=== PATIENT | female | born 1950 | race Caucasian/White ===

== ENCOUNTER 2025-01-20 17:41 | Emergency (ER) | payer OTHER, SELFPAY ==
[2025-01-20 17:49] VITALS: BP 159/85; PULSE 104; RESP 18; TEMP 36.5; O2SAT 96
--- NOTE | 2025-01-20 18:15 | ED.GENADUL_ITS ---
Discharge Plan Disposition Patient Disposition: Home Condition: Stable Discharge Details Clinical Impression: Change in mental status Primary Care Provider: None,None ED Provider: Leif Ramirez Discharge Instructions Additional Instructions: Your blood work and CAT scan did not show any emergent findings. I have placed you on our follow-up list to try and expedite follow-up with her primary care provider. If you feel more ill or have new symptoms such as high fevers or difficulty breathing return to emergency department for reevaluation. HPI General Date/Time Provider Initiated Documentation: 01/20/25 17:43 . Limitations to Documentation: no limitations . Information obtained by: patient . History of Present Illness 74 year old F presents to the emergency department with the chief complaint of altered mental status, described as moderate, Patient started experiencing this unknown and it has been constant. No relieving factors improve symptom(s), No exacerbating factors reported . Patient notes denies fever/chills and shortness of breath. Patient did receive the following treatments prior to arrival, none General Stated Complaint: Urinary MARIAMA: 3 Review of Systems All systems reviewed & are unremarkable except as noted in HPI and below Constitutional Constitutional: Denies chills, Denies fever(s) and Denies weakness Cardiovascular Cardiovascular: Denies chest pain and Denies dyspnea Respiratory Respiratory: Denies cough and Denies dyspnea Gastrointestinal Gastrointestinal: Denies abdominal pain, Denies nausea and Denies vomiting Neurologic Neurologic: Denies weakness Exam Const General: no acute distress Orientation: alert HENAZ Head: normal to inspection Ears: external ears normal General nose exam: external nose normal Mouth: moist mucous membranes Eyes General: appearance normal, both eyes and all related structures Neck Neck: normal visual inspection Resp Effort & Inspection: normal respiratory effort and able to speak in complete sentences Cardio Rate: regular rate GI Palpation: soft and nontender Skin General skin exam: no rashes or lesions noted Neuro General: patient alert and patient oriented x3 Extrem General: normal to inspection Psych Mental Status: mental status grossly normal Course Vital Signs Vital signs: Vital Signs Temperature 36.5 C 01/20/25 17:49 Pulse 104 H 01/20/25 17:49 Respiratory Rate 18 01/20/25 17:49 Blood Pressure 159/85 H 01/20/25 17:49 Pulse Oximetry 96 01/20/25 17:49 Temperature 36.5 C 01/20/25 17:49 Temperature Source Oral 01/20/25 17:49 Pulse 104 H 01/20/25 17:49 Respiratory Rate 18 01/20/25 17:49 Blood Pressure 159/85 H 01/20/25 17:49 Blood Pressure Position Sitting 01/20/25 17:49 Pulse Oximetry 96 01/20/25 17:49 Oxygen Delivery Method Room Air 01/20/25 17:49 Oxygen Flow Rate 0 01/20/25 17:49 Medical Decision Making 74-year-old female with a history of hypertension who comes in with her niece who she moved in with recently after moving from [place] with concerns for changes in mental status. The patient's niece states that she seems to be answering questions slower than what she remembers when she last saw her in person over a year ago. She went to urgent care a day or 2 ago and was diagnosed with a UTI and is currently on Bactrim. The patient is ambulating with a normal gait. She has oriented x 4 with no focal deficits but she does take a few seconds to answer questions normally. I suspect she probably has underlying dementia that is undiagnosed. Will check CBC, CMP and UA and CT head. Given the lack of focal findings and an NIH of 0 I doubt acute CVA. Patient stable and is asymptomatic. CT head and labs show no emergent findings. I suspect she probably has dementia that her family do not know about. They state that she has a PCP appointment in April, I will place on the follow-up list to try and get seen sooner than this. Return precautions given [facility] All Active Problems (Updated 01/20/25 @ 20:10 by Leif Ramirez MD) Change in mental status (Acute) Social History Smoking/Tobacco Use Status: Never Smoking risk assessment performed?: Yes Alcohol Intake: never Drug use: Never Substance use type: does not use Housing: apartment Do you feel safe at home: Yes Do you feel safe in your relationship?: Yes
[2025-01-20] MEDS: Normal Saline 1,000 ML 1000 ML IV (18:56)
--- NOTE | 2025-01-20 19:00 | DI.CT_ITS ---
Exam(s) CT HEAD WO EXAM: CT HEAD WO CLINICAL HISTORY: ams. TECHNIQUE: Imaging Protocol: Axial computed tomography images with coronal and sagittal reformatted images were created and reviewed COMPARISON: No exams were available for comparison FINDINGS: Ventricles and Extra axial spaces: Normal in size and morphology for the patient's age. Hemorrhage: None. Cerebral parenchyma: There is no evidence of an acute territorial infarct or mass effect. Midline shift: None. Brainstem/Cerebellum: Normal. Calvarium: Normal. Visualized Paranasal sinuses/Mastoids: Clear. Soft Tissues: Unremarkable. IMPRESSION: 1. No acute intracranial process. 2. The preliminary [facility] report was reviewed. RADIATION DOSE DELIVERED: 838.33mGy.cm Total DLP DATA REPOSITORY: All CT scans at this facility are submitted to the National Radiology Data Registry (NRDR) Dose Index Registry (DIR) with the [employer] (A[employer]). RADIATION OPTIMIZATION: All CT scans at this facility use at least one of these dose optimization techniques: automated exposure control; mA and/or kV adjustment per patient size (includes targeted exams where dose is matched to clinical indication); or iterative reconstruction.
[2025-01-20 19:03] LABS: Abs Immature Grans 0.01 10^3/uL (0.0-0.06); HCT 37.7 % (36.0-46.0); HGB 12.5 g/dL (11.2-15.7); Immature Grans % 0.2 %; MCH 31.3 pg (27.0-33.0); MCHC 33.2 % (32.0-36.0); MCV 95 fL (80-95); MPV 8.9 fL (8.0-11.0); Platelet Count 250 10^3/uL (130-400); RBC 3.99 10^6/uL (3.93-5.22); RDW 11.7 % (11.7-14.6); RDW-SD 40.8 fL; WBC 5.28 10^3/uL (4.4-10.8)
[2025-01-20 19:05] LABS: Glucose Negative (Negative)
[2025-01-20 19:12] LABS: RBC 0-2 HPF (0-2); WBC Negative HPF (0-5)
[2025-01-20 19:13] LABS: C & S Indicated? No
[2025-01-20 19:27] LABS: ALT 35 U/L (14-59); AST 24 U/L (15-37); Albumin 4.2 g/dL (3.4-5.0); Alkaline Phosphatase 59 U/L (46-116); Anion Gap 5.9 mmol/L (3-11); BUN 8 mg/dL (7-18); Bilirubin, Total 0.5 mg/dL (0.2-1.0); CO2 33.1 mmol/L (21.0-32.0); Calcium 9.6 mg/dL (8.5-10.1); Chloride 99 mmol/L (98-107); Estimated GFR 95.31 (mL/min/1.73m2); Glucose 111 mg/dL (74-106); Magnesium 2.3 mg/dL (1.8-2.4); Potassium 3.3 mmol/L (3.5-5.1); Sodium 138 mmol/L (136-145); Total Protein 7.2 g/dL (6.4-8.2)
--- NOTE | 2025-01-20 20:05 | DI.[facility]_ITS ---
PROCEDURE INFORMATION: Exam: CT Head Without Contrast Exam date and time: 01/20/2025 7:15 PM Age: 74 years old Clinical indication: Altered mental status/memory loss; Confusion or disorientation; AMS TECHNIQUE: Imaging protocol: Computed tomography of the head without contrast. Radiation optimization: All CT scans at this facility use at least one of these dose optimization techniques: automated exposure control; mA and/or kV adjustment per patient size (includes targeted exams where dose is matched to clinical indication); or iterative reconstruction. COMPARISON: No relevant prior studies available. FINDINGS: Brain: No acute intracranial hemorrhage or mass lesions. No midline shift. Normal hdz-white differentiation. Cerebral ventricles: No ventriculomegaly. Paranasal sinuses: Visualized sinuses are unremarkable. No fluid levels. Mastoid air cells: Visualized mastoid air cells are well aerated. Bones: Unremarkable. No acute fracture. Soft tissues: Unremarkable. IMPRESSION: No acute intracranial findings. Dictated and Authenticated by: Kinjal Todd MD. Orderin James Yadav MD
[2025-01-20 20:33] VITALS: BP 165/79; PULSE 76; RESP 18
== END 2025-01-20 20:34 | disposition home or self-care (01) ==
PROVIDERS: Emergency Provider Emergency Medicine
DX: R41.82 Altered mental status, unspecified (principal); Z87.440 Personal history of urinary (tract) infections
CPT/HCPCS: 36415; 80053; 96360; 96361; 99284; 70450; 81003; 81015; 83735; 85025; 99283

== ENCOUNTER 2025-01-24 17:19 | Outpatient (REF) | payer OTHER, SELFPAY ==
[2025-01-24 21:08] LABS: Folate > 20.0 ng/mL (8.6-20.0); TSH (W/Ref FT4) 0.46 uIU/mL (0.36-3.74); Vitamin B12 > 2000 pg/mL (193-986)
== END 2025-01-24 17:20 | disposition home or self-care (01) ==
LOC: NCHCN 17:19
PROVIDERS: Visit Provider Family Medicine
DX: R41.82 Altered mental status, unspecified (principal)
CPT/HCPCS: 82607; 82746; 84443

== ENCOUNTER 2025-01-25 18:40 | Inpatient (IN) | payer OTHER, SELFPAY ==
[2025-01-25] VITALS (26 sets, daily range): BP systolic 108–166; BP diastolic 57–119; PULSE 75–111; RESP 11–21; TEMP 36.6–36.9; O2SAT 85–100
--- NOTE | 2025-01-25 19:00 | RT.EKG_ITS ---
APPROVED REPORT Exam: Resting ECG Reason for Exam: tachy Patient Location: E HR:98 bpm ECG Measurements Heart Rate 98 AXIS CA 121 P 82 QRSd 76 QRS -48 QT 343 T 45 QTc 437 Conclusion Sinus rhythm, rate 98 No interval abnormalities No STEMI PAC Q wave V1-V2, no priors available for comparison
--- NOTE | 2025-01-25 19:05 | ED.GENADUL_ITS ---
Discharge Plan Disposition Patient Disposition: Admit to [facility] Condition: Stable Discharge Details Clinical Impression: Adult failure to thrive, Acute dehydration Admit Date/Time: 01/25/25 20:39 Admit Provider: Miguelito Villar Attending Provider: Miguelito Villar Primary Care Provider: Unknown,Unknown ED Provider: Eva Ryan [facility] General Mode of arrival: EMS . Date/Time Provider Initiated Documentation: 01/25/25 18:59 . Limitations to Documentation: no limitations . Information obtained by: patient, EMS and old records reviewed . HPI Narrative: This is a 74-year-old female patient with a past medical history significant for hypertension, and a recent visit to this emergency department for alteration in mental status and slow speech since moving from [place] to [place] to live closer to family. She is presenting today for ongoing alterations in mental status and not eating or drinking at home. EMS reports that the family was concerned as it has been 5 days and she has not eaten. They report that she continues to be off her most recent known baseline, which to them was 1 year ago. The patient will back to be with family and be closer to them, states that the move was really big and hard on her, and that she is feeling quite anxious. The patient was noted by EMS to answer no questions in the presence of her family, she answered some questions little more readily when she was in the ambulance. The patient is very slow to answer with blunted affect, denies pain, states that she just does not feel like eating. Denies suicidal ideations though she does hesitate quite a bit when asked if she is not eating because she wants to . She reports that she feels safe in her family members home, denies any physical abuse, states that nobody is withholding necessary things from her, but does state that she would prefer to be alone in her hospital room without family at this time. Related Data Home Medications ?Medication ?Instructions ?Recorded ?Confirmed losartan 25 mg tablet 25 mg PO DAILY 01/25/2501/07 Allergies Allergy/AdvReac Type Severity Reaction Status Date / Time lisinopril Allergy Severe Other (See Verified 01/25/25 18:58 Comment) General Stated Complaint: AMS/LOC MARIAMA: 3 Exam Narrative Exam Narrative: Gen: Awake and alert, appears quite thin HEENT: Non-icteric sclera, PERRL Neck: Supple Lungs: No apparent respiratory distress, normal respiratory effort. CV: Appears well perfused, heart with tachycardic rate but regular rhythm, strong distal pulses Abdomen: Non-distended, soft MSK: Moves 4 extremities without apparent limitation in ROM. No peripheral edema Skin: Visualized skin without rashes, cyanosis. Neuro: Normal Gait, no obvious focal deficits or facial asymmetry. Speaks in slow, soft sentences Psych: Blunted affect, significant (30 to 45-second) delay in answering many questions. Denies suicidal ideation Course Vital Signs Vital signs: Vital Signs Temperature 36.6 C 01/25/25 18:46 Pulse 111 H 01/25/25 18:46 Respiratory Rate 20 01/25/25 18:46 Blood Pressure 157/69 H 01/25/25 18:46 Pulse Oximetry 98 01/25/25 18:46 Temperature 36.6 C 01/25/25 18:51 Temperature Source Oral 01/25/25 18:51 Pulse 111 H 01/25/25 18:51 Respiratory Rate 20 01/25/25 18:51 Blood Pressure 157/69 H 01/25/25 18:51 Blood Pressure Position Sitting 01/25/25 18:51 Pulse Oximetry 98 01/25/25 18:51 Oxygen Delivery Method Room Air 01/25/25 18:51 Oxygen Flow Rate 0 01/25/25 18:51 Medical Decision Making This is a 74-year-old female patient presenting for evaluation of altered mental status and poor p.o. intake. Differential includes but is not limited to dehydration, metabolic and electrolyte derangement, anemia, kidney and liver injury. No chest pain to suggest ACS, though certainly that was considered in addition to arrhythmia. I considered psychiatric disturbance including suicidal ideation, depression, catatonia. Considered hypothyroidism, infection such as urinary tract infection, substance use and intoxication/withdrawal syndromes. The patient denies any sort of abuse or neglect at this time though this was considered given the demeanor shift when in the presence of her family. The patient had vitamin testing performed at her primary care's office yesterday, but unfortunately these results are not yet available. We will obtain an EKG, and labs to include CBC, CMP, magnesium, phosphorus, troponin, UDS, and urinalysis. The patient had a head CT on her visit just a few days ago which was without acute abnormality, and I do not see an indication based on the lack of reported trauma to repeat this study today. - EKG reviewed by myself, showing a sinus rhythm without evidence of ischemia, interval abnormalities, did have a single PAC. No priors available for comparison. I independently interpreted the laboratory studies, which show no significant leukocytosis, anemia, or thrombocytopenia. The chemistry panel is without evidence of electrolyte abnormality, kidney dysfunction, or liver injury. The patient does have a BUN to creatinine ratio greater than 22 1 suggestive of dehydration. Troponin was negative and without interval increase in 1 hour d elta recheck. TSH within normal limits, ethanol negative. I was able to obtain some collateral from the family members, including the patient's brother with whom she resides and her niece. They report that the patient was acting normally as recently as January 14, was conversant and interactive. For the last 2 weeks she has been increasingly withdrawn, no longer responds to texts or questions at home, and they report that she has been just standing in the same place for hours. They report that they have been working with outpatient providers and trying to get the patient referred to [facility], as they are concerned that she is not going to be successful at home. They report that she shuts down totally when she is offered food or drink by any of the family members. I discussed this patient's case with the hospitalist, as I do not feel that she is safe for discharge home based on my evaluation nor family report. She has failed outpatient management and at this time would benefit from inpatient admission for rehydration and likely [facility] psych evaluation/referral. I discussed the case with Dr. Mireles with the hospitalist team, and the decision was made to trial a small dose of intravenous benzodiazepine for catatonia. This was provided and the patient did become quite sleepy and rested. Family was made aware of the decision, and she will be transported from our department for admission. She remained hemodynamically appropriate while under my care. Eva Ryan MD [facility] All Active Problems (Updated 01/25/25 @ 21:22 by Miguelito Villar) DVT prophylaxis (Acute) Hypercalcemia (Acute) Acute dehydration (Acute) Adult failure to thrive (Acute) Change in mental status (Acute) Medical History (Updated 01/25/25 @ 21:22 by Miguelito Villar) Underweight Hypertension Social History Smoking/Tobacco Use Status: Never Smoking risk assessment performed?: Yes Alcohol Intake: never Drug use: Never Substance use type: does not use Housing: apartment Do you feel safe at home: Yes Do you feel safe in your relationship?: Yes
[2025-01-25 19:11] LABS: Abs Immature Grans 0.01 10^3/uL (0.0-0.06); HCT 40.9 % (36.0-46.0); HGB 13.7 g/dL (11.2-15.7); Immature Grans % 0.2 %; MCH 31.4 pg (27.0-33.0); MCHC 33.5 % (32.0-36.0); MCV 94 fL (80-95); MPV 8.9 fL (8.0-11.0); Platelet Count 264 10^3/uL (130-400); RBC 4.36 10^6/uL (3.93-5.22); RDW 11.7 % (11.7-14.6); RDW-SD 40.6 fL; WBC 5.38 10^3/uL (4.4-10.8)
[2025-01-25] MEDS: Lactated Ringers 1,000 ML 1000 ML IV (19:21)
[2025-01-25 19:46] LABS: ALT 30 U/L (14-59); AST 24 U/L (15-37); Albumin 4.3 g/dL (3.4-5.0); Alkaline Phosphatase 58 U/L (46-116); Anion Gap 13.7 mmol/L (3-11); BUN 25 mg/dL (7-18); Bilirubin, Total 0.9 mg/dL (0.2-1.0); CO2 26.3 mmol/L (21.0-32.0); Calcium 10.2 mg/dL (8.5-10.1); Chloride 97 mmol/L (98-107); Estimated GFR 91.83 (mL/min/1.73m2); Glucose 81 mg/dL (74-106); Magnesium 2.3 mg/dL (1.8-2.4); Potassium 4.1 mmol/L (3.5-5.1); Sodium 137 mmol/L (136-145); TSH (W/Ref FT4) 0.46 uIU/mL (0.36-3.74); Total Protein 7.5 g/dL (6.4-8.2)
[2025-01-25 19:47] LABS: Troponin I 20 ng/L (<or=51)
[2025-01-25] MEDS: Midazolam 2 MG/2 ML VIAL IVP (20:32)
[2025-01-25 20:46] LABS: Troponin I 22 ng/L (<or=51)
--- NOTE | 2025-01-25 20:53 | W.PM.HP.N ---
Date of service: 01/25/25 Time of Service: 20:53 Assessment and Plan Assessment and plan (1) Change in mental status: Status: Acute Assessment and plan: Subacute mental status alteration with clinical picture constistent with catatonia Has occured in several days to 2 week time frame. Basic labs non revealing. Recent TSH, B12 normal. Negative EtOH, UDS pending, but no drug use history With some memory changes get RPR with AM labs. With EtOH history get thiamine and give and IV dose tonight. CT reassuring from 01/20, exams have been non-focal, so stroke of space occupying lesion unlikely She denies formal mental health history other than AUD in remission, but describes h/o anxiety. She does meet criteria for MDD. Psych ccnsult placed. Consider MRI but we couldn't get until 01/28 CPK, low iron can be a/w catatonia, get these, She may end up needing geripsych placement (2) Acute dehydration: Status: Acute Assessment and plan: She got some fluids in the ED, repeat BUN/Cr in am, monitor urine output (3) Hypertension: Assessment and plan: Mildly elevated. Continue losartan (4) Underweight: Assessment and plan: She desribes significant weight loss. TSH normal. Treat possible depression. Consider nutrition. Get A1c. Malignancy work up should be reviewed. She may benefit from acid suppression given symptoms. (5) Hypercalcemia: Status: Acute Assessment and plan: hypercalcimia can have psychiatric effects, but hers is mild so I would not expect these. Get Vit D, ionized Ca, and PTH with repeat with morning labs. (6) DVT prophylaxis: Status: Acute Assessment and plan: with lack of activity, will cover with enoxaparin History of Present Illness History of Present Illness Chief Complaint: depressed mental status Narrative: 74 yo F with HTN, underweight, who recently moved to be near family from [place] is presenting for the second time this week with withdrawn behavior, depressed mental status, delayed speech, and not eating. She describes feeling anxious, thinking more slowly, and stomach not feeling good when she thinks about eating. On questioning she does endorse depressed mood and some feelings of hopelessness. When asked about suicidal ideation, she states not to that extent after waiting several seconds to respond. She is sleeping 8-9 hours a night. She described loosing about 20 lbs, though she isn't totally sure of the time course. She states she would like to put on weight but she doesn't feel like eating. She denies any recent alcohol or other substance use. She does say she is having more trouble remembering things than she used to. She denies hallucinations. No ESQUIVEL, vision changes, focal numbness or dizziness. No vomiting or diarrhea. No fevers or chills or night sweats. She was given a trial of midazolam in the ED. Per Dr. Baumann, she was more sedated afterwards, no not clear catatonia response. They patient herself says she feels more relaxed now and her speech is more fluent than described in ED note, though still delayed, especially when asked questions about symtoms of depression. Review of Systems All systems reviewed & are unremarkable except as noted in HPI and below PFSH All Active Problems (Updated 01/25/25 @ 22:44 by Miguelito Villar) DVT prophylaxis (Acute) Hypercalcemia (Acute) Acute dehydration (Acute) Adult failure to thrive (Acute) Change in mental status (Acute) Medical History (Updated 01/25/25 @ 22:44 by Miguelito Villar) Alcohol use disorder in remission Endometriosis Breast cancer Underweight Hypertension Surgical History (Updated 01/25/25 @ 22:43 by Miguelito Villar) S/P mastectomy, bilateral S/P bilateral oophorectomy Family History (Updated 01/25/25 @ 22:43 by Miguelito Villar) Brother Diabetes Father Heart disease Social History (Updated 01/25/25 @ 22:46 by Miguelito Villar) Smoking/Tobacco Use Status: Never Smoking risk assessment performed?: Yes Alcohol Intake: former Year quit: 2019 Drug use: Never Substance use type: does not use Housing: house Do you feel safe at home: Yes Do you feel safe in your relationship?: Yes Additional Social history: Moved from [place], [place] to [facility] 01/11/2025 to live with Brother and Niece. 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 Thin. No acute distress at rest. HEENT: Head atraumatic. Conjunctiva clear, no icterus. PEERL, EOMI. no rhinorrhea. MMM, OP benign. Neck is supple with no masses or lymphadenopathy, trachea midline LUNGS: CTAB with normal effort CV: RRR with no murmurs, gallops, or rubs. ABD: active bowel sounds, soft, nontender and nondistended. No masses. EXT: no cyanosis, clubbing. 1+ edema only in ankles below malleoli MSK: No joint redness or swelling NEURO: CN 2-12 intact. Normal strength, sensation to light touch, and DTRs of 4 extremities. Normal coordination. No tremor SKIN: No rashes or open wounds. PSYCH: Anxious mood, but flattened affect. Sitting strait up in bed, somewhat rigid posture. Speech is slightly slow,delayed after most questions, but more fluid when she starts to speak. Results Imaging EKG: report reviewed and image reviewed (NSR 96, some PACs, left axis, nl intervals, no ST-T changes) Imaging Studies: 01/20 CT head: no acute process Labs 01/25/25 19:05 01/25/25 19:05 Labs: Laboratory Results - last 24 hr 01/25/25 01/25/25 01/25/25 19:05 20:20 22:09 WBC 5.38 RBC 4.36 Hgb 13.7 Hct 40.9 MCV 94 MCH 31.4 MCHC 33.5 RDW 11.7 Plt Count 264 MPV 8.9 Immature Gran % 0.2 Neutrophils % 77.8 Lymphocytes % 13.4 Monocytes % 7.6 Eosinophils % 0.6 Basophils % 0.4 Nucleated RBC % 0.0 Absolute Neutrophils 4.19 Absolute Lymphocytes 0.72 L Absolute Monocytes 0.41 Absolute Eosinophils 0.03 Absolute Basophils 0.02 Sodium 137 Potassium 4.1 Chloride 97 L Carbon Dioxide 26.3 Anion Gap 13.7 H BUN 25 H Creatinine 0.7 Est GFR (CKD-EPI 2020) 91.83 Glucose 81 Calcium 10.2 H Phosphorus 3.5 Magnesium 2.3 Total Bilirubin 0.9 AST 24 ALT 30 Alkaline Phosphatase 58 Troponin I 20 22 Cancelled Total Protein 7.5 Albumin 4.3 TSH 0.46 Ethyl Alcohol < 3.0 Last Vital Signs Temp 36.6 C 01/25/25 18:51 Pulse 86 01/25/25 20:40 Resp 16 01/25/25 20:40 BP 166/87 H 01/25/25 20:30 Pulse Ox 99 01/25/25 20:40 Time Spent Time spent with Patient: 55-74 minutes Time was spent: preparing to see the patient(eg.review tests), obtaining and/or reviewing separately otained hiistory, ordering medications,tests, procedures, referring, communicating with other health insurance healthcare representative, indepentently interpreting results, counseling the patient and care coordination
--- NOTE | 2025-01-25 21:12 | W.PC.ACHO ---
Registration Status: REG ER Primary Language: Preferred Language: ED Information & Data Chief Complaint AMS/LOC 01/25/25 19:09 Triage Note per ems pt family states she 01/25/25 18:46 is not eating and drinking and slow to respond Medical / Surgical History (Last Updated 01/25/25 @ 21:05 by Miguelito Villar) Underweight Hypertension Most Recent Vital Signs Temperature 36.6 C 01/25/25 18:51 Temperature Source Oral 01/25/25 18:51 Pulse 86 01/25/25 20:40 Pulse 86 01/25/25 20:40 Respiratory Rate 16 01/25/25 20:40 Respiratory Effort Normal 01/25/25 19:10 Blood Pressure 166/87 H 01/25/25 20:30 Blood Pressure Mean 110 01/25/25 20:30 Blood Pressure Position Sitting 01/25/25 18:51 Pulse Oximetry 99 01/25/25 20:40 Oxygen Delivery Method Room Air 01/25/25 18:51 Oxygen Flow Rate 0 01/25/25 18:51 Allergies lisinopril Allergy (Severe, Verified 01/25/25 18:58) Other (See Comment) cough IV IV Catheter Type [Left Peripheral IV Antecubital] IV Catheter Gauge [Left 18 Antecubital] Diet Orders Category Date Time Status Regular/Normal [DIET] Nutrition 01/26/25 Breakfast Ordered Diagnostics 01/25/25 01/25/25 01/25/25 Range/Units Unknown 22:09 20:20 WBC (4.4-10.8) 10^3/uL RBC (3.93-5.22) 10^6/uL Hgb (11.2-15.7) g/dL Hct (36.0-46.0) % MCV (80-95) fL MCH (27.0-33.0) pg MCHC (32.0-36.0) % RDW (11.7-14.6) % Plt Count (130-400) 10^3/uL MPV (8.0-11.0) fL Immature Gran % % Neutrophils % % Lymphocytes % % Monocytes % % Eosinophils % % Basophils % % Nucleated RBC % (0.0-0.3) % Absolute Neutrophils (1.2-6.7) 10^3/uL Absolute Lymphocytes (1.2-3.4) 10^3/uL Absolute Monocytes (0.1-0.8) 10^3/uL Absolute Eosinophils (0.0-0.7) 10^3/uL Absolute Basophils (0.0-0.2) 10^3/uL Sodium (136-145) mmol/L Potassium (3.5-5.1) mmol/L Chloride (98-107) mmol/L Carbon Dioxide (21.0-32.0) mmol/L Anion Gap (3-11) mmol/L BUN (7-18) mg/dL Creatinine (0.55-1.02) mg/dL Est GFR (CKD-EPI 2020) (mL/min/1.73m2) Glucose (74-106) mg/dL Calcium (8.5-10.1) mg/dL Phosphorus (2.6-4.7) mg/dL Magnesium (1.8-2.4) mg/dL Total Bilirubin (0.2-1.0) mg/dL AST (15-37) U/L ALT (14-59) U/L Alkaline Phosphatase (46-116) U/L Troponin I Cancelled 22 (<or=51) ng/L Total Protein (6.4-8.2) g/dL Albumin (3.4-5.0) g/dL TSH (0.36-3.74) uIU/mL Ethyl Alcohol (<10) mg/dL Add-On Test Request Pending 01/25/25 Range/Units 19:05 WBC 5.38 (4.4-10.8) 10^3/uL RBC 4.36 (3.93-5.22) 10^6/uL Hgb 13.7 (11.2-15.7) g/dL Hct 40.9 (36.0-46.0) % MCV 94 (80-95) fL MCH 31.4 (27.0-33.0) pg MCHC 33.5 (32.0-36.0) % RDW 11.7 (11.7-14.6) % Plt Count 264 (130-400) 10^3/uL MPV 8.9 (8.0-11.0) fL Immature Gran % 0.2 % Neutrophils % 77.8 % Lymphocytes % 13.4 % Monocytes % 7.6 % Eosinophils % 0.6 % Basophils % 0.4 % Nucleated RBC % 0.0 (0.0-0.3) % Absolute Neutrophils 4.19 (1.2-6.7) 10^3/uL Absolute Lymphocytes 0.72 L (1.2-3.4) 10^3/uL Absolute Monocytes 0.41 (0.1-0.8) 10^3/uL Absolute Eosinophils 0.03 (0.0-0.7) 10^3/uL Absolute Basophils 0.02 (0.0-0.2) 10^3/uL Sodium 137 (136-145) mmol/L Potassium 4.1 (3.5-5.1) mmol/L Chloride 97 L (98-107) mmol/L Carbon Dioxide 26.3 (21.0-32.0) mmol/L Anion Gap 13.7 H (3-11) mmol/L BUN 25 H (7-18) mg/dL Creatinine 0.7 (0.55-1.02) mg/dL Est GFR (CKD-EPI 2020) 91.83 (mL/min/1.73m2) Glucose 81 (74-106) mg/dL Calcium 10.2 H (8.5-10.1) mg/dL Phosphorus 3.5 (2.6-4.7) mg/dL Magnesium 2.3 (1.8-2.4) mg/dL Total Bilirubin 0.9 (0.2-1.0) mg/dL AST 24 (15-37) U/L ALT 30 (14-59) U/L Alkaline Phosphatase 58 (46-116) U/L Troponin I 20 (<or=51) ng/L Total Protein 7.5 (6.4-8.2) g/dL Albumin 4.3 (3.4-5.0) g/dL TSH 0.46 (0.36-3.74) uIU/mL Ethyl Alcohol < 3.0 (<10) mg/dL Add-On Test Request Intake and Output - 24 Hour Total 01/25/25 18:32 thru 01/25/25 18:46 Weight 42.7 kg Falls Risk Assessment History of Falls No History 01/25/25 18:51 Contributing Factors No Factors 01/25/25 18:51 Ambulatory Aids Independent 01/25/25 18:51 Tubes/Lines None 01/25/25 18:51 Gait Evaluation No gait disturbance 01/25/25 18:51 Cognition No cognitive impairment 01/25/25 18:51 Fall Total Score 0 01/25/25 18:51 Level of Risk Standard/Low Risk 01/25/25 18:51 Problems (Last Updated 01/25/25 @ 21:05 by Miguelito Villar) Hypercalcemia (Acute) Acute dehydration (Acute) Change in mental status (Acute) v v v v v v v v v Sending and/or Receiving Nurses: Please use comment section below to note any information pertinent to the patient hand-off not included above. Information / Comments: report received from ED. On RA, slow speech. ind. Received Versed in the ED. Report received from: Marcella WOLFF RN
[2025-01-25 21:28] LABS: Creatine Kinase 98 U/L (26-192)
[2025-01-25] MEDS: Normal Saline Flush 10 ML SYR IVP (22:31)
[2025-01-25] MEDS: THIAMINE 500 MG in Normal Saline 100 ML 200 MG IVPB (23:32)
[2025-01-25] MEDS: Pantoprazole 40 MG TABCR PO (23:41)
[2025-01-26 00:19] LABS: Lab Add On Test DONE
[2025-01-26 00:48] LABS: Glucose Negative (Negative)
[2025-01-26 00:55] LABS: C & S Indicated? No
[2025-01-26 01:00] LABS: Cannabinoids THC Negative (Negative); METHADONE URINE SCREEN Negative (Negative)
[2025-01-26 07:15] LABS: Anion Gap 7.0 mmol/L (3-11); BUN 14 mg/dL (7-18); CO2 30.0 mmol/L (21.0-32.0); Calcium 9.2 mg/dL (8.5-10.1); Chloride 103 mmol/L (98-107); Estimated GFR 95.31 (mL/min/1.73m2); Glucose 88 mg/dL (74-106); Potassium 3.8 mmol/L (3.5-5.1); Sodium 140 mmol/L (136-145)
[2025-01-26 07:47] LABS: Iron 82 ug/dL (50-170); Total Iron Binding Capacity 266 ug/dL (250-450); Transferrin Sat 31 % (15-50)
[2025-01-26 08:10] LABS: Vitamin D 25 Total 49 ng/mL (30-100)
[2025-01-26] MEDS: Enoxaparin 40 MG/0.4 ML SYR SC (08:11)
[2025-01-26] MEDS: Losartan 25 MG TAB PO (08:11)
[2025-01-26] MEDS: Pantoprazole 40 MG TABCR PO (08:11)
[2025-01-26] MEDS: Normal Saline Flush 10 ML SYR IVP ×2 (08:12→20:09)
[2025-01-26 08:21] LABS: Hemoglobin A1C 5.1 % (<5.7)
[2025-01-26 09:06] VITALS: BP 131/59; PULSE 86; RESP 16; TEMP 36.5; O2SAT 97
--- NOTE | 2025-01-26 09:25 | INITIAL_ITS ---
Date of service: 01/26/25 Time of Service: 09:25 Care Management Initial Assmt Initial Assessment Reason for Hospitalization: acute dehydration, failure to thrive Functional Status/Living Situation Patient Presentation: Kerry presented to the ED yesterday evening for altered mental status and not eating or drinking at home. Kerry recently moved from [place] to [place] to be closer to family. Family stated that this was a big move Kerry and was hard on her, causing a lot of anxiety. She had presented to the ED on 01/20, also for change in mental status, had a reassuring CT, and was discharged home. Kerry was noted by ER staff to be very slow to answer questions and was described as catatonia. Psych eval was order. Kerry was given IVF and head CT on 01/20 was reassuring. Kerry did not really speak with CM today. She was sitting up in the bed, and was pleasant enough with her facial expressions and eye contact, but she did not answer questions, even when given the time to do so. She was noted to not having touched her lunch, and refused when CM asked to help her with it. CM reached out to Kerry's niece, Simran. Simran stated that Kerry just moved here from [place] on 01/15. She had lived in [place] for 50 years. She moved to [facility] to move in with her brother, Carlos. Simran lives in the same building. Simran stated that they keep in close touch, and she has noticed a decline for about 2 months. Tele-psych recommended that Kerry be a psych admit when consult performed today, as she was endorsing SI. [facility] was in to see Kerry, and Kerry is now a voluntary psych hold pending inpatient bed offer. Simran was made aware of this. Simran is hoping for [facility], this referral was suggested by her new PCP, Festus Bradford MD. Simran does not want referrals sent to [facility], as she has had a bad experince with them. MELODIE passed along this info to [facility]. Town of Residence: [facility] Resides with: Alone Significant Other/Family: Local (brother, Carlos and niece, Simran. ) Natural Supports: Carlos and Simran Employment Status: Retired Instrumental Activities of Daily Living (ADLs): Independent (had previously been independent.) Advance Directives Advance Directives: Do you have an Advance Directive: N , 18:44 AD On File at [facility]: N 01/20/25, 18:44 Date Asked 01/25/25 01/25/25, 19:10 AD Date Reviewed COLST On File at [facility] No 01/25/25, 19:10 COLST Date Scanned Code Status Resuscitation Status Full Code Insurance Coverage/Financial Issues Insurance: Medicare Part A & B Care Team Visit Care Team Role Provider Type Yumiko Lyon NP NURSE PRACTITIONER Unknown Unknown Primary Care Provider STAFF PHYSICIAN Eva Ryan MD Emergency Provider [facility] STAFF PHYSICIAN Miguelito Villar Admit Provider [facility] STAFF PHYSICIAN Attending Provider Discharge Potential Discharge Needs: PCP F/U Appt Anticipated Barriers to Discharge: None Identified Patient/Family Education Needs: Review discharge instructions, discuss Ask Me Three Plan: Kerry is now being held on a voluntary psych hold pending bed availability. She will be seen by [facility] daily while she is here. CM will continue to follow. Social Determinants of Health Screening Social Determinants of health last assessed in clinic: 01/26/25 Will the Patient Participate in the Screening?: Yes Do you worry about having a steady place to live?: no Problems where you live: no known problems In the past 12 months, have you had to go without electric, gas, oil or water in your home?: no 1. Within the past 12 months, we worried whether our food would run out before we got money to buy more.: Don't know/refused 2. Within the past 12 months, the food we bought just didn't last and we didn't have money to get more.: Don't know/refused Has lack of transportation kept you from medical appointments or from doing things needed for daily living?: no Has anyone in your life made you feel unsafe or unsupported?: no How hard is it for you to pay for the very basics like food, housing, medical care, and heating? Would you say it is:: Not hard at all Do you want help finding or keeping work or a job?: I do not need or want help If for any reason you need help with day-to-day activities such as bathing, preparing meals, shopping, managing finances, etc., do you get the help you need?: I don?t need any help How often do you feel lonely or isolated from those around you?: Never Do you speak a language other than Belarusian at home?: No Does the patient want assistance with any of the above?: No PFSH All Active Problems (Updated 01/26/25 @ 17:37 by Yumiko Lyon NP) DVT prophylaxis (Acute) Acute dehydration (Acute) Adult failure to thrive (Acute) Change in mental status (Acute) Medical History (Updated 01/26/25 @ 17:37 by Yumiko Lyon NP) Alcohol use disorder in remission Endometriosis Breast cancer Underweight Hypertension Surgical History (Updated 01/25/25 @ 22:43 by Miguelito Villar) S/P mastectomy, bilateral S/P bilateral oophorectomy Family History (Updated 01/25/25 @ 22:43 by Miguelito Villar) Brother Diabetes Father Heart disease Social History (Updated 01/25/25 @ 22:46 by Miguelito Villar) Smoking/Tobacco Use Status: Never Smoking risk assessment performed?: Yes Alcohol Intake: former Year quit: 2019 Drug use: Never Substance use type: does not use Housing: house Do you feel safe at home: Yes Do you feel safe in your relationship?: Yes Additional Social history: Moved from [place], [place] to [facility] 01/11/2025 to live with Brother and Niece. 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
--- NOTE | 2025-01-26 11:36 | PSYCO_ITS ---
Date of service: 01/26/25 Time of Service: 11:36 Summary Note PSYCHIATRY TELEPHONE NOTE Date/Time:?01/26/2025 11:35:04 AM Name:Shonda Bermudez :?1950 Location of the patient:?[facility] IP Consulting [facility] Clinician:?Sharif Dave Discussed plan with onsite cafeteria team leader:?Eva Lo RN 74-year-old female. patient with a past medical history significant for hypertension, and a recent visit to this emergency department for alteration in mental status and slow speech since moving from [place] to [place] to live closer to family. She is presenting today for ongoing alterations in mental status and not eating or drinking at home. EMS reports that the family was concerned as it has been 5 days and she has not eaten. They report that she continues to be off her most recent known baseline, which to them was 1 year ago. The patient will back to be with family and be closer to them, states that the move was really big and hard on her, and that she is feeling quite anxious. The patient was noted by EMS to answer no questions in the presence of her family, she answered some questions little more readily when she was in the amb ulance. The patient is very slow to answer with blunted affect, denies pain, states that she just does not feel like eating. Denies suicidal ideations though she does hesitate quite a bit when asked if she is not eating because she wants to . She reports that she feels safe in her family members home, denies any physical abuse, states that nobody is withholding necessary things from her, but does state that she would prefer to be alone in her hospital room without family at this time.. ?Spoke with Eva Lo RN. Hospital is on backup p[ower and their video machine is not connecting. Unclear when they will be up and running Plan: Case paused due to technical issues. Please notify [facility] when patient can be seen Sharif Dave , [facility]
--- NOTE | 2025-01-26 13:07 | W.PM.PROGNOT ---
Date of Service Date of service: 01/26/25 Time of Service: 13:07 Assessment and Plan Assessment and plan (1) Suicidal ideation: Status: Acute Assessment and plan: Telemetry psych consult completed and patient does endorse suicidality Mental health consultation with plan for voluntary inpatient psychiatric treatment Placed on suicidal precautions per protocol (2) Change in mental status: Status: Acute Assessment and plan: Medical screening exam unremarkable Patient was reportedly catatonic, this has resolved Mental health evaluation completed and patient endorses suicidality (3) Acute dehydration: Status: Acute Assessment and plan: BUN normalized after receiving IV fluids in the emergency department Still is not taking oral intake will give another liter of IV fluids, D5 and a half normal saline with 20 of potassium (4) Hypertension: Assessment and plan: Mildly elevated. Continue losartan (5) Underweight: Assessment and plan: Patient has reportedly not eaten in 7 days Continues to refuse to eat Inpatient psychiatric management pending bed acceptance (6) Hypercalcemia: Status: Resolved Assessment and plan: Normalized after receiving IV fluids Vit D, ionized Ca, and PTH complete (7) DVT prophylaxis: Status: Acute Assessment and plan: Continue enoxaparin Discussed with Dr. Brizuela Subjective Subjective Patient reports: no new complaints and afebrile; denies tolerating liquids well, tolerating a regular diet or shortness of breath Interval history since last seen: Patient remains hemodynamically stable. She continues to refuse to eat and drink. She is responding appropriately although her responses are slow. She does make eye contact denies any pain or complaints Did endorse suicidality during psychiatric evaluation Exam Narrative Exam Narrative: Thin female appearing younger than stated age no acute distress head is atraumatic eyes nonicteric noninjected oral mucosa is dry neck full range of motion no JVD cardiovascular regular rate and rhythm respirations even and unlabored abdomen soft nontender moves extremities no peripheral edema skin is pale warm and dry neurologic she is awake alert responding appropriately but slowed responses. Psychiatric blunted mood and affect does make eye contact slowed response Objective Last Vital Signs Temp 36.5 C 01/26/25 09:06 Pulse 86 01/26/25 09:06 Resp 16 01/26/25 09:06 BP 131/59 L 01/26/25 09:06 Pulse Ox 97 01/26/25 09:06 Laboratory Results - last 24 hr 01/25/25 01/25/25 01/25/25 19:05 20:20 22:09 WBC 5.38 RBC 4.36 Hgb 13.7 Hct 40.9 MCV 94 MCH 31.4 MCHC 33.5 RDW 11.7 Plt Count 264 MPV 8.9 Immature Gran % 0.2 Neutrophils % 77.8 Lymphocytes % 13.4 Monocytes % 7.6 Eosinophils % 0.6 Basophils % 0.4 Nucleated RBC % 0.0 Absolute Neutrophils 4.19 Absolute Lymphocytes 0.72 L Absolute Monocytes 0.41 Absolute Eosinophils 0.03 Absolute Basophils 0.02 Sodium 137 Potassium 4.1 Chloride 97 L Carbon Dioxide 26.3 Anion Gap 13.7 H BUN 25 H Creatinine 0.7 Est GFR (CKD-EPI 2020) 91.83 Glucose 81 Hemoglobin A1c Calcium 10.2 H Phosphorus 3.5 Magnesium 2.3 Iron TIBC Transferrin % Sat Total Bilirubin 0.9 AST 24 ALT 30 Alkaline Phosphatase 58 Creatine Kinase 98 Troponin I 20 22 Cancelled Total Protein 7.5 Albumin 4.3 25-OH Vitamin D Total TSH 0.46 Urine Color Urine Clarity Urine pH Ur Specific [place] Urine Protein Urine Ketones Urine Blood Urine Nitrite Urine Bilirubin Urine Urobilinogen Ur Leukocyte Esterase Urine RBC Urine WBC Ur Epithelial Cells Urine Crystals Urine Bacteria Urine Casts Urine Mucus Ur Culture Indicated? Urine Glucose Urine Opiates Screen Urine Methadone Screen Ur Barbiturates Screen Ur Tricyclics Screen Ur Amphetamines Screen U Benzodiazepines Scrn Urine Cocaine Screen Ur THC Screen Ethyl Alcohol < 3.0 Add-On Test Request 01/25/25 01/26/25 01/26/25 Unknown 00:30 06:35 WBC RBC Hgb Hct MCV MCH MCHC RDW Plt Count MPV Immature Gran % Neutrophils % Lymphocytes % Monocytes % Eosinophils % Basophils % Nucleated RBC % Absolute Neutrophils Absolute Lymphocytes Absolute Monocytes Absolute Eosinophils Absolute Basophils Sodium 140 Potassium 3.8 Chloride 103 Carbon Dioxide 30.0 Anion Gap 7.0 BUN 14 Creatinine 0.6 Est GFR (CKD-EPI 2020) 95.31 Glucose 88 Hemoglobin A1c 5.1 Calcium 9.2 Phosphorus Magnesium Iron 82 TIBC 266 Transferrin % Sat 31 Total Bilirubin AST ALT Alkaline Phosphatase Creatine Kinase Troponin I Total Protein Albumin 25-OH Vitamin D Total 49 TSH Urine Color Yellow Urine Clarity Clear Urine pH 6.0 Ur Specific [place] 1.025 Urine Protein 30 H Urine Ketones >=160 H Urine Blood Trace-lysed H Urine Nitrite Negative Urine Bilirubin Small H Urine Urobilinogen 0.2 Ur Leukocyte Esterase Trace H Urine RBC 3-5 H Urine WBC 3-5 Ur Epithelial Cells Rare Urine Crystals Negative Urine Bacteria Negative Urine Casts 0-2 Hyaline Urine Mucus Heavy Ur Culture Indicated? No Urine Glucose Negative Urine Opiates Screen Negative Urine Methadone Screen Negative Ur Barbiturates Screen Negative Ur Tricyclics Screen Negative Ur Amphetamines Screen Negative U Benzodiazepines Scrn Positive A Urine Cocaine Screen Negative Ur THC Screen Negative Ethyl Alcohol Add-On Test Request DONE Time Spent with Patient Time Spent with Patient: >50 minutes Time was spent: preparing to see the patient(eg.review tests), obtaining and/or reviewing separately otained hiistory, ordering medications,tests, procedures, referring, communicating with other health resident care aide, indepentently interpreting results and counseling the patient
--- NOTE | 2025-01-26 15:44 | PSYCO_ITS ---
Date of service: 01/26/25 Time of Service: 15:44 Summary Note PSYCHIATRY CONSULT NOTE: INITIAL EVALUATION Date/Time:?01/26/2025 3:43:09 PM Name:Shonda Bermudez :?1950 Location of the patient:?[facility] IP Consulting Array Clinician:?Sharif Dave Location of the clinician:?[place] Length of Consult:?40 minutes SUMMARY 74-year-old female, with history of anxiety disorder, depressive disorder, history of suicidal ideation, poor self-care, [id number], with no current excessive drug use, no history of violent behavior, no past psychiatric hospitalizations, admitted to medicine 01/25 for AMS referred to psychiatry for altered mental status, anxiety, depression. Patient presents medically to the hospital for significant dehydration. Family has reported that she has not been eating or drinking, does not talk much, increasingly withdrawn, no longer responds to texts or questions at home and sometimes will be found just standing in the same place for hours. She shuts down totally when offered food or drink by family members. When brought to the hospital she admits that she has been depressed, hopeless, and has lost 20 pounds. . When seen today, he says she has very high anxiety, is depressed, and has had suicidal thoughts but she does not think she is attempting to kill herself intentionally. She is flat, with extremely latent verbal responses to the point that the interview is limited. Patient appears to be gravely disabled by her current mental health, jones s never had any treatment, and is appropriate for psychiatric admission. The video feed failed and was not able to be reestablished during the discussion as to whether she would be voluntary or not. She appears to be so disabled that if she does not agree to voluntary admission, she should be screened for possible EE status. She is agreeable to starting medications. We discussed mirtazapine 15 mg nightly for her depression, anxiety, and appetite/sleep. She was agreeable. Patient is at elevated risk of danger to self. Patient presently meets criteria for inpatient psychiatric hospitalization. Working Diagnoses:? F33.2 Major depressive disorder, recurrent severe without psychotic features; F41.9 Anxiety disorder, unspecified ; F39386 Suicidal ideations Rule Out Diagnoses:? CPT Codes:?86653 - Psychiatric Diagnostic Evaluation with Medical Services PLAN Disposition:?patient medically admitted-anticipate psychiatric admission when medically stable ? Observation level ? Psychiatric 1:1 needed??Continue psych 1:1 OR Close observation per hospital protocol Work-up:? Pharmacological:? recommend starting Mirtazapine 15mg QHS ? Is patient psychotic? - No; ? Informed consent: Discussed risks and benefits of the above recommended psychiatric medications with patient, who demonstrated understanding and gave express informed consent to take the above medications as documented. Follow up needed while in the hospital??Q24h Other:? Parts of this note were dictated using voice recognition software and may contain small irregularities and grammatical errors which are unintentional. ? If questions arise about the psychiatric care of this patient, please call the [facility]?to request a follow-up consult. ?Please do not contact me individually through the EMR chat as I am not?regularly logged on to?this system. The psychiatrist for the follow-up visit may be a different psychiatrist Discussed plan with onsite merchandise flow team member:?Yes - Unable to reach Yumiko Lyon NP. Goes to . Discussed with Gaviota casillas RN HISTORY This evaluation was conducted remotely with the assistance of onsite staff via HIPAA-compliant video call. Patient consented to proceed with the telehealth visit. Requested by:?Yumiko Lyon NP, MD Sources of information:?Patient, medical record History of Present Illness:? 74-year-old female, living with family, single, retired, with history of anxiety disorder, depressive disorder, history of suicidal ideation, poor self-care, [id number], with no current excessive drug use, no history of violent behavior, no past psychiatric hospitalizations, admitted to medicine 01/25 for AMS referred to psychiatry for altered mental status, anxiety, depression. UDS not ordered, Alcohol undetectable. In the hospital, patient has been in behavioral control with no reported issues. patient with a past medical history significant for hypertension, and a recent visit to this emergency department for alteration in mental status and slow speech since moving from [place] to [place] to live closer to family. She is presenting today for ongoing alterations in mental status and not eating or drinking at home. EMS reports that the family was concerned as it has been 5 days and she has not eaten. They report that she continues to be off her most recent known baseline, which to them was 1 year ago. The patient will back to be with family and be closer to them, states that the move was really big and hard on her, and that she is feeli ng quite anxious. The patient was noted by EMS to answer no questions in the presence of her family, she answered some questions little more readily when she was in the ambulance. The patient is very slow to answer with blunted affect, denies pain, states that she just does not feel like eating. Denies suicidal ideations though she does hesitate quite a bit when asked if she is not eating because she wants to . She reports that she feels safe in her family members home, denies any physical abuse, states that nobody is withholding necessary things from her, but does state that she would prefer to be alone in her hospital room without family at this time.. On psychiatric evaluation, patient is reliable, organized, cooperative, alert, pleasant, unable to give clear history. She is very latent in her speech. I asked why she is here and she says she wasn't doing well. She has trouble telling me details about what this means. She says she was having fear and anxiety. I asked if the anxiety was about anything in particular. She says she moved here from [place] and arrived 01/15. she says it was stressful. Asked if she has a hx of anxiety before coming here and she doesnt answer directly, tells me about selling her house in [place] instead. Has to ask her again and she says she had not as much. She seems to be having some issues with word finding, which apparently isnt baseline either. She admits she cant eat because she is anxious. Ruminating about the circumstances of how her condo in [place] got sold but havbing trouble articulating what this is about. She also on admission endorsed some depression, hopelessness but no SI. She denied on admission that lack of intake was attempt to kill herself. When asked now she admits I did. I asked when that was and she says when I get really depressed. She says she has been suicidal since she moved to [place]. I asked if she is trying to end her life by not eating or drinking and she says not intentionally. Latency is so pronounced that information gathering about her history is very limited.. Collateral Contacted No-- patient meets criteria for inpatient hospitalization. Dr Baumann obtained collateral from the family members, including the patient's brother with whom she resides and her niece. They report that the patient was acting normally as recently as January 14, was conversant and interactive. For the last 2 weeks she has been increasingly withdrawn, no longer responds to texts or questions at home, and they report that she has been just standing in the same place for hours. They report that they have been working with outpatient providers and trying to get the patient referred to [facility], as they are concerned that she is not going to be successful at home. They report that she shuts down totally when she is offered food or drink by any of the family members.. PSYCHIATRIC REVIEW OF SYSTEMS (symptoms in past two weeks) Pertinent Positives:?depressed mood/hopelessness/poor appetite/anergia/anxiety Pertinent Negatives:?no anhedonia/no irritability/no aggressive behavior/no agitation/no command hallucinations/no panic attacks/no impulsivity PSYCHIATRIC HISTORY Past Psychiatric Diagnoses/Problems:?anxiety disorder, depressive disorder Psychiatric Treatment:?Hospitalizations:?no past psychiatric hospitalizations ???Other Past treatment:?none ???Current treatment:?no reported current psychiatric treatment Drug/Alcohol History ???Current excessive drug/alcohol use:?none ???Past excessive drug/alcohol use:?unknown ???Drug/alcohol use comment:?Treatment:?none ???Withdrawal symptoms:?none ???UDS results:?UDS not ordered ???BAL results:?undetectable ???Active withdrawal Protocol:? Stressors:?inadequate social support, exacerbation of mental illness, Recent move Trauma:?unknown Family Psychiatric History:?unknown HEALTH HISTORY Medical Problems:? deemed medically stable, hypertension Is patient linked with PCP??unknown Psychiatric and other clinically relevant medications:?none Allergies/Adverse Medication Reactions:?lisinopril Physical Findings:?no clinically significant changes in vital signs, no clinically significant abnormal lab values, QTc < 500 ms, QTc = 437 DEMOGRAPHICS/SOCIAL HISTORY Gender:?female Living Situation:?living with family Relationship Status:?single Education:?unknown Employment:?retired Social Support Network:?supportive social network of family or friends Legal History:?none Special Considerations:?none RISK EVALUATION Suicidality/self-injury:?Yes suicidal ideation Primary Suicide Screening (PSS-3) 1. In the past two weeks, have you felt down, depressed, or hopeless??YES 2. In the past two weeks, have you had thoughts of killing yourself??YES 3. In your lifetime, have you ever attempted to kill yourself??NO 3a. Within the past 6 months??NO ESS-6 Secondary Screen ( If #2 is yes or #3a is yes within the past 6 months, then complete secondary screen) 1. Positive on PSS-3 questions 2 & 3 ? active suicidal ideation with a past attempt??NO 2. Have you been thinking about how you might kill yourself??NO 3. Have you had some intention of acting on your thoughts??NO 4. Lifetime psychiatric hospitalization??NO 5. Has drinking or substance abuse ever been a problem for you??NO 6. Current irritability, agitation, or aggression??NO PSS-3/ESS-6 Secondary Screen Scoring:?Mild PSS-3/ESS-6 Scoring Interpretation Legend PSS-3 screen incomplete [Blank PSS-3 questions #2 OR #3a] PSS-3 screen unable to assess [Unable to Assess responses on PSS-3 questions #2 AND #3a] Mild [No current attempt AND No suicide plan or intent AND Score (0-2)] Moderate [No current attempt AND Active suicidal ideation with plan or intent (not both) OR Score (3-4)] Severe [Current attempt OR Suicide plan and intent OR Score (5-6)] HI/Violence/Property Destruction:?no history of violent/aggressive behavior Access to Firearms:?none Grave disability/Poor self-care:?yes [id number], poor PO intake, poor self-care Psychosis:?No Protective Factors:?future orientation High Utilization Criteria:?none Signs of Secondary Gain:?none MENTAL STATUS EXAM Appearance and Attire:? Normal, Poor eye contact, Thin Psychomotor agitation:? No abnormality Attitude and behavior:? Cooperative Speech:? Soft, VERY latent responses Mood:? Depressed, Anxious Affect:? Flat Thought Process:? Linear, Logical, Vague Thought content:? Suicidal ideation Perception:?unable to assess Intelligence:? Average Abstraction:? Appropriate Language:? No abnormality Orientation:? Grossly oriented Sensorium:? Normal Knowledge:? Appropriate for education and socioeconomic status Memory:? Intact Insight:? Severe impairment Judgment:? Severe impairment SUMMARY RISK ASSESSMENT Current Suicide Risk Elevated??PSS-3/ESS-6 Scoring: Mild? Current Violence Risk Elevated??No Issues with ability to care for self.?No Sharif Dave, , [facility]
--- NOTE | 2025-01-26 17:41 | CMSP_ITS ---
Date of service: 01/26/25 Time of Service: 17:41 Care Management Safety Plan Status Status: Voluntary Reason for Wait Reason for Wait: Inpatient Admission Safety Plan Safety Plan: VOLUNTARY FOR INPATIENT PSYCHIATRIC STABILIZATION.? Patient is appropriate in all interactions since arriving at [facility]; Pt has demonstrated appropriate coping and communication skills, has articulated his or her needs and concerns and is fully engaged during staff interactions. Safety plan has been established with patient, and care team, to adhere to patient goals, identify restrictions based on behavioral status, address nutrition, and determine allowed personal belongings, tools for hygiene and personal care. Determine level of activity including ambulation, level of superv ision, visitors, and determine privileges based on behaviors and level of engagement by pt. VOLUNTARY SAFETY PLAN: 1. Will remain on suicide precautions, in paper clothes 2. Will remain in med-surg room under direct supervision of one-on-one staff at all times provided by [employer]; MIKIE, INDUSTRIAL EDUCATION INSTRUCTOR telephone worker. 3. May have paper cups, plates, finger foods as well as a cardboard spoon with which to eat meals. 4. Follow [facility] Management of the Admitted Behavioral Health Patient policy. 5. Comfort bath system, shower permitted with escort at RN discretion. 6. Personal belongings-soft items permitted at RN discretion. 7. Visitors - Brother, Carlos, niece, Simran may visit. 8. Activities: soft cart items, hospital tablets (Netflix/[place]+/music) approved per RN discretion. 9.? Bathroom available in room without restriction. 10. Phone: limited to [facility] cordless phone at RN discretion. Due to VOLUNTARY status, if patient wishes to leave [facility], staff will contact [facility] Crisis Screener ([phone]) and Well Cleaner ([phone]) as soon as possible. In the event of elopement, notify [place] [employer] ([phone]). Patient is currently voluntarily at [facility] and seeking inpatient admission when a bed becomes available. [facility] Frontline Printed Circuit Board Drafter will continue seeking placement. Please contact the Well Cleaner ([phone]) and [facility] Printed Circuit Board Drafter ([phone]) for any needed changes in the Safety Plan. Safety plan has been provided to interdepartmental care team.
--- NOTE | 2025-01-26 17:41 | PDOC.CMSAFE ---
Date of service: 01/26/25 Time of Service: 17:41 Care Management Safety Plan Status Status: Voluntary Reason for Wait Reason for Wait: Inpatient Admission Safety Plan Safety Plan: VOLUNTARY FOR INPATIENT PSYCHIATRIC STABILIZATION.? Patient is appropriate in all interactions since arriving at [facility]; Pt has demonstrated appropriate coping and communication skills, has articulated his or her needs and concerns and is fully engaged during staff interactions. Safety plan has been established with patient, and care team, to adhere to patient goals, identify restrictions based on behavioral status, address nutrition, and determine allowed personal belongings, tools for hygiene and personal care. Determine level of activity including ambulation, level of supervision, visitors, and determine privileges based on behaviors and level of engagement by pt. VOLUNTARY SAFETY PLAN: 1. Will remain on suicide precautions, in paper clothes 2. Will remain in med-surg room under direct supervision of one-on-one staff at all times provided by [employer]; MIKIE, GANG PUNCH OPERATOR personal counselor. 3. May have paper cups, plates, finger foods as well as a cardboard spoon with which to eat meals. 4. Follow [facility] Management of the Admitted Behavioral Health Patient policy. 5. Comfort bath system, shower permitted with escort at RN discretion. 6. Personal belongings-soft items permitted at RN discretion. 7. Visitors - Brother, Carlos, niece, Simran may visit. 8. Activities: soft cart items, hospital tablets (Netflix/[place]+/music) approved per RN discretion. 9.? Bathroom available in room without restriction. 10. Phone: limited to [facility] cordless phone at RN discretion. Due to VOLUNTARY status, if patient wishes to leave [facility], staff will contact [facility] Crisis Screener ([phone]) and Knotter Hand ([phone]) as soon as possible. In the event of elopement, notify [place] [employer] ([phone]). Patient is currently voluntarily at [facility] and seeking inpatient admission when a bed becomes available. [facility] Frontline Housing Inspectors will continue seeking placement. Please contact the Knotter Hand ([phone]) and [facility] Housing Inspectors ([phone]) for any needed changes in the Safety Plan. Safety plan has been provided to interdepartmental care team.
[2025-01-26] MEDS: POTASSIUM CHLORIDE/D5-0.45NACL 1,000 ML 100 MEQ IV (20:23)
--- NOTE | 2025-01-26 22:20 | PDOC.MHCN ---
Date of service: 01/26/25 Time of Service: 16:45 PHQ-9 Over the last 2 weeks, how often have you been bothered by any of the following problems? 1. Little interest or pleasure in doing things: nearly every day 2. Feeling down, depressed, or hopeless: nearly every day 3. Trouble falling or staying asleep, or sleeping too much: nearly every day 4. Feeling tired or having little energy: nearly every day 5. Poor appetite or overeating: nearly every day 6. Feeling bad about yourself - or that you are a failure or have let yourself and your family down: nearly every day 7. Trouble concentrating on things, such as reading the newspaper or watching television: more than half the days 8. Moving or speaking so slowly that other people could have noticed? - Or the opposite - being so fidgety or restless that you have been moving around a lot more than usual: more than half the days 9. Thoughts that you would be better off or of hurting yourself in some way: more than half the days Total score: 24 If you checked off any problems, how difficult have these problems made it for you to do your work, take care of things at home, or get along with other people?: somewhat difficult Source: Developed by Drs. Chaka Kaye, Alesha Cole, Mauro Soliman and colleagues, with an educational andreas from [employer]. Mental Health Emergency Note Release NK release signed:: Yes Reason for Visit In the last 2 weeks has the pt presented for ES prior to today?: No Asssessment/Mental Status Appearance: Unremarkable Attitude: Passive and Guarded Behavior: Unremarkable Speech: Soft, Slow and Hesitant Affect: Flat and Cogruent with mood Mood: Sad and Depressed Thought process: Blocking Hallucinations: No evidence Delusions: No evidence Attention: Unremarkable Perception: Not impaired Orientation: Fully orientated Memory: Intact Insight: Poor Judgement: Poor Neurovegetative Symptoms Sleep: No change Appetitie: Decrease Interests: Decrease Energy: Decrease Libido: Not applicable Impression Kerry is a 74-year old female who recently moved from [place] to [place]. Per Kerry's family she has not been herself since arriving to [place]. Kerry has reportedly not been drinking or eating. Kerry appeared to this life insurance underwriter as severely depressed. After Kerry was asked a questions, she would remain quiet for a while then would respond in a soft tone. Typically with one word answers or a shake of her head. As the questions got more invasive, Kerry appeared to struggle with answering. This life insurance underwriter offered the assessment to Kerry to self report. By this method Kerry was able to complete to PHQ-9, which was scored at 24 out of 27. When Kerry attempted to answer the CSSRS questions, Kerry was observed to hover over the yes for all the questions multiple times. But when Kerry attempted to check off yes she was physically unable to. Due to the stress this was causing Kerry, this life insurance underwriter suggested discontinuing the questions. This life insurance underwriter then reported that Kerry didn't have to answer any additional question, but because of her inability to speak about her suicidal ideations this life insurance underwriter recommended inpatient hospitalized. Plan/Disposition Recommended Disposition: Hospitalization facilities contacted. Plan: Kerry agreed to a voluntary inpatient hospitalization. Kerry will need daily assessment till placement has been found. Reports/communication Outcome discussed with: ED/Personnel
[2025-01-26] MEDS: Acetaminophen 325 MG TAB 650 MG PO (22:59)
[2025-01-26] MEDS: diphenhydrAMINE 25 MG CAP PO (23:00)
[2025-01-27] MEDS: Losartan 25 MG TAB PO (07:59)
[2025-01-27] MEDS: Pantoprazole 40 MG TABCR PO (07:59)
[2025-01-27] MEDS: Enoxaparin 30 MG/0.3 ML SYR SC (07:59)
[2025-01-27] MEDS: Normal Saline Flush 10 ML SYR IVP (07:59)
[2025-01-27 08:44] VITALS: BP 138/84; PULSE 107; RESP 16; TEMP 36.6; O2SAT 98
--- NOTE | 2025-01-27 12:22 | CMSP_ITS ---
Date of service: 01/27/25 Time of Service: 12:22 Care Management Safety Plan Status Status: Voluntary Reason for Wait Reason for Wait: Inpatient Admission Safety Plan Safety Plan: VOLUNTARY FOR INPATIENT PSYCHIATRIC STABILIZATION.? Patient is appropriate in all interactions since arriving at [facility]; Pt has demonstrated appropriate coping and communication skills, has articulated his or her needs and concerns and is fully engaged during staff interactions. Safety plan has been established with patient, and care team, to adhere to patient goals, identify restrictions based on behavioral status, address nutrition, and determine allowed personal belongings, tools for hygiene and personal care. Determine level of activity including ambulation, level of supervision, visitors, and determine privileges based on behaviors and level of engagement by pt. VOLUNTARY SAFETY PLAN: 1. Will remain on suicide precautions, in paper clothes 2. Will remain in med-surg room under direct supervision of one-on-one staff at all times provided by [employer]; MIKIE, SURVEY ANALYST black oxide operator. 3. May have paper cups, plates, finger foods as well as a cardboard spoon with which to eat meals. 4. Follow [facility] Management of the Admitted Behavioral Health Patient policy. 5. Comfort bath system, shower permitted with escort at RN discretion. 6. Personal belongings-soft items permitted at RN discretion. 7. Visitors - Brother, Carlos, niece, Simran may visit. 8. Activities: soft cart items, hospital tablets (Netflix/[place]+/music) approved per RN discretion. 9.? Bathroom available in room without restriction. 10. Phone: limited to [facility] cordless phone at RN discretion. Due to VOLUNTARY status, if patient wishes to leave [facility], staff will contact [facility] Crisis Screener ([phone]) and Compressor Mechanic ([phone]) as soon as possible. In the event of elopement, notify [place] [employer] ([phone]). Patient is currently voluntarily at [facility] and seeking inpatient admission when a bed becomes available. [facility] Frontline Administrative Support Manager will continue seeking placement. Please contact the Compressor Mechanic ([phone]) and [facility] Administrative Support Manager ([phone]) for any needed changes in the Safety Plan. Safety plan has been provided to interdepartmental care team.
--- NOTE | 2025-01-27 12:22 | PDOC.CMSAFE ---
Date of service: 01/27/25 Time of Service: 12:22 Care Management Safety Plan Status Status: Voluntary Reason for Wait Reason for Wait: Inpatient Admission Safety Plan Safety Plan: VOLUNTARY FOR INPATIENT PSYCHIATRIC STABILIZATION.? Patient is appropriate in all interactions since arriving at [facility]; Pt has demonstrated appropriate coping and communication skills, has articulated his or her needs and concerns and is fully engaged during staff interactions. Safety plan has been established with patient, and care team, to adhere to patient goals, identify restrictions based on behavioral status, address nutrition, and determine allowed personal belongings, tools for hygiene and personal care. Determine level of activity including ambulation, level of supervision, visitors, and determine privileges based on behaviors and level of engagement by pt. VOLUNTARY SAFETY PLAN: 1. Will remain on suicide precautions, in paper clothes 2. Will remain in med-surg room under direct supervision of one-on-one staff at all times provided by [employer]; MIKIE, ATTORNEY AT LAW counter former. 3. May have paper cups, plates, finger foods as well as a cardboard spoon with which to eat meals. 4. Follow [facility] Management of the Admitted Behavioral Health Patient policy. 5. Comfort bath system, shower permitted with escort at RN discretion. 6. Personal belongings-soft items permitted at RN discretion. 7. Visitors - Brother, Carlos, niece, Simran may visit. 8. Activities: soft cart items, hospital tablets (Netflix/Mccall+/music) approved per RN discretion. 9.? Bathroom available in room without restriction. 10. Phone: limited to [facility] cordless phone at RN discretion. Due to VOLUNTARY status, if patient wishes to leave [facility], staff will contact [facility] Crisis Screener ([phone]) and Maori Liaison Adviser ([phone]) as soon as possible. In the event of elopement, notify [place] [employer] ([phone]). Patient is currently voluntarily at [facility] and seeking inpatient admission when a bed becomes available. [facility] Frontline Logistics Engineering Manager will continue seeking placement. Please contact the Maori Liaison Adviser ([phone]) and [facility] Logistics Engineering Manager ([phone]) for any needed changes in the Safety Plan. Safety plan has been provided to interdepartmental care team.
--- NOTE | 2025-01-27 12:33 | PGE_ITS ---
Date of Service Date of service: 01/27/25 Time of Service: 12:33 Assessment and Plan Assessment and plan (1) Suicidal ideation: Status: Acute Assessment and plan: awaiting voluntary inpatient psychiatric treatment suicidal precautions per protocol no behavioral disturbances (2) Change in mental status: Status: Resolved Assessment and plan: Medical screening exam unremarkable Patient was reportedly catatonic, this has resolved likely at baseline (3) Acute dehydration: Status: Resolved Assessment and plan: taking oral intake s/p IV hydration (4) Hypertension: Assessment and plan: Mildly elevated. Continue losartan (5) Underweight: Assessment and plan: Patient has reportedly not eaten in 7 days Continues to refuse to eat Inpatient psychiatric management pending bed acceptance (6) Hypercalcemia: Status: Resolved Assessment and plan: Normalized after receiving IV fluids Vit D, ionized Ca, and PTH complete (7) DVT prophylaxis: Status: Acute Assessment and plan: refuses enoxaparin has been out of bed and ambulating. Discussed with Dr. Brizuela Subjective Subjective Patient reports: no new complaints, tolerating liquids well and afebrile; denies tolerating a regular diet (not eating) or shortness of breath Interval history since last seen: remains under suicidal precautions, no behavioral disturbances, medically stable. still refusing to eat. Exam Narrative Exam Narrative: Thin female appearing younger than stated age no acute distress head is atraumatic eyes nonicteric noninjected oral mucosa is dry neck full range of motion no JVD cardiovascular regular rate and rhythm respirations even and unlabored abdomen soft nontender moves extremities no peripheral edema skin is pale warm and dry neurologic she is awake alert responding appropriately but sl owed responses. Psychiatric blunted mood and affect does make eye contact slowed response Objective Last Vital Signs Temp 36.6 C 01/27/25 08:44 Pulse 107 H 01/27/25 08:44 Resp 16 01/27/25 08:44 BP 138/84 01/27/25 08:44 Pulse Ox 98 01/27/25 08:44 Time Spent with Patient Time Spent with Patient: 35-49 minutes Time was spent: preparing to see the patient(eg.review tests), obtaining and/or reviewing separately otained hiistory, indepentently interpreting results and counseling the patient
--- NOTE | 2025-01-27 16:38 | CMPROGNOTE_ITS ---
Date of service: 01/27/25 Time of Service: 16:38 Care Management Progress Note Progress Note Text Progress Note Text: Kerry was up in the chair when CM met with her today. She was a bit more talkative than yesterday, but still very quiet. She appears cognizant of her surroundings and situation. She was noted to be eating a little bit of lunch. Her niece was in to visit with her earlier, as was [facility]. [facility]i did show some interest in Kerry, but Simran, her niece, declined that offer due to a bad experience there and they are hopeful for [facility] or [facility]. Discharge Potential Discharge Needs: Other (inpatient psychiatric bed ) Anticipated Barriers to Discharge: Bed availability Transportation: Other (to be determined at disposition) Plan: Kerry will remain as inpatient until a psychiatric bed is available. Her transport will be determined at discharge. CM will continue to follow. MH Services (Omit if N/A) Current MH Services: None Referred to Internal [facility] (ED embedded) adult protective caseworker?: Yes (med provider and therapist) Social Determinants of Health Screening Social Determinants of health last assessed in clinic: 01/27/25 Will the Patient Participate in the Screening?: Yes Do you worry about having a steady place to live?: no Problems where you live: no known problems In the past 12 months, have you had to go without electric, gas, oil or water in your home?: no 1. Within the past 12 months, we worried whether our food would run out before we got money to buy more.: Don't know/refused 2. Within the past 12 months, the food we bought just didn't last and we didn't have money to get more.: Don't know/refused Has lack of transportation kept you from medical appointments or from doing things needed for daily living?: no Has anyone in your life made you feel unsafe or unsupported?: no How hard is it for you to pay for the very basics like food, housing, medical care, and heating? Would you say it is:: Not hard at all Do you want help finding or keeping work or a job?: I do not need or want help If for any reason you need help with day-to-day activities such as bathing, preparing meals, shopping, managing finances, etc., do you get the help you need?: I don?t need any help How often do you feel lonely or isolated from those around you?: Never Do you speak a language other than Hungarian at home?: No Does the patient want assistance with any of the above?: No
[2025-01-27] MEDS: POTASSIUM CHLORIDE/0.45% NACL 1,000 ML 100 MEQ IV (18:40)
[2025-01-27 20:44] VITALS: BP 141/88; PULSE 99; RESP 18; TEMP 36.6; O2SAT 98
[2025-01-27] MEDS: Mirtazapine 15 MG TAB PO (20:45)
[2025-01-28] MEDS: POTASSIUM CHLORIDE/0.45% NACL 1,000 ML 100 MEQ IV ×2 (04:06→14:56)
[2025-01-28] MEDS: Pantoprazole 40 MG TABCR PO (07:52)
[2025-01-28] MEDS: Losartan 25 MG TAB PO (07:53)
[2025-01-28 10:37] LABS: Syphilis Serology (RPR) Negative (Negative)
--- NOTE | 2025-01-28 11:17 | PDOC.CMPRO ---
Date of service: 01/28/25 Time of Service: 11:17 Care Management Progress Note Progress Note Text Progress Note Text: CM spoke with [facility] surrounding Kerry's plan of care. Per Rose [facility], Kerry's mentation has worsened since she saw her on 01/19/25 with an increase in delayed response time. [facility] states she is disorientated to place and time. Per report, referrals were sent; Kimberly will follow up on these today. CM faxed clinical information to [facility]. Per report, RN states [facility] has built a reppote with Kerry. Kerry was agreeable to conversation but did require some time to deliver her responses; responses were appropriate. Kerry shared that she previously lived in [place] and enjoyed her time there. She mentioned having a nephew who resides there with his and children. Krery stated that she enjoys reading and baking bread, although she does not typically engage in other types of baking. She expressed hope that she might be able to go for a walk later today. At the time of conversation, eKrry had lunch in front of her but reported not feeling very hungry, though she noted that she does enjoy sandwiches. Kerry states that she would want Simran Cardona and Carlos Bermudez be her HCA. Kerry called Simran on her cell phone while CM in room. Simran states Kerry has AD and is agreeable to bringing this paperwork in; Scanning in. Kerry was accepted to [facility] for tomorrow and she is agreeable to this plan. Repeate telepsych consult ordered. CM will continue to follow. Discharge Potential Discharge Needs: Other (inpatient psychiatric bed) Anticipated Barriers to Discharge: Bed availability Patient/Family Education Needs: Review discharge instructions, discuss Ask Me Three Transportation: Other (to be determined at disposition) Plan: Kerry will remain as inpatient until a psychiatric bed is available. Her transport will be determined at discharge. CM will continue to follow. Status Status: Interim Social Determinants of Health Screening Social Determinants of health last assessed in clinic: 01/28/25 Will the Patient Participate in the Screening?: Yes Do you worry about having a steady place to live?: no Problems where you live: no known problems In the past 12 months, have you had to go without electric, gas, oil or water in your home?: no 1. Within the past 12 months, we worried whether our food would run out before we got money to buy more.: Never true 2. Within the past 12 months, the food we bought just didn't last and we didn't have money to get more.: Never true Has lack of transportation kept you from medical appointments or from doing things needed for daily living?: no Has anyone in your life made you feel unsafe or unsupported?: no How hard is it for you to pay for the very basics like food, housing, medical care, and heating? Would you say it is:: Not hard at all Do you want help finding or keeping work or a job?: I do not need or want help If for any reason you need help with day-to-day activities such as bathing, preparing meals, shopping, managing finances, etc., do you get the help you need?: I don?t need any help How often do you feel lonely or isolated from those around you?: Never Do you speak a language other than Tanzanian at home?: No Does the patient want assistance with any of the above?: No
--- NOTE | 2025-01-28 12:39 | W.PM.PROGNOT ---
Date of Service Date of service: 01/28/25 Time of Service: 12:39 Assessment and Plan Assessment and plan (1) Suicidal ideation: Status: Acute Assessment and plan: Suicidal ideation: Awaiting voluntary inpatient psychiatric admission Precautions: Suicidal precautions per hospital protocol Behavior: No acute behavioral disturbances noted (2) Change in mental status: Status: Acute Assessment and plan: 74F with severe depression, anxiety, and suicidal ideation; no improvement with mirtazapine, remains gravely disabled and with poor intake. Request consult for further treatment recommendations and guidance on management. Requested tele psych consult for today. (3) Acute dehydration: Status: Resolved Assessment and plan: Continue oral hydration - encourage (4) Hypercalcemia: Status: Resolved Assessment and plan: Normalized after receiving IV fluids Vit D, ionized Ca, and PTH complete (5) DVT prophylaxis: Status: Acute Assessment and plan: refuses enoxaparin has been out of bed and ambulating. Discussed with Dr. Brizuela Subjective Subjective Patient reports: no new complaints Interval history since last seen: Unable to assess subjective due to patient?s marked latency, flat affect, and minimal verbal responses Exam Narrative Exam Narrative: General: Thin female, appears younger than stated age, no acute distress Head: Atraumatic Eyes: Nonicteric, noninjected Oral: Mucosa dry Neck: No JVD Cardiovascular: Regular rate and rhythm Respiratory: Even, unlabored respirations Abdomen: Soft, nontender Extremities: Moves all extremities, no peripheral edema Skin: Pale, warm, dry Neurologic: Awake, alert, not responding to questions or making eye contact at time of assessment. Psychiatric: Nonverbal, not responding to questions, no eye contact, affect blunted. Objective Last Vital Signs Temp 36.6 C 01/27/25 20:44 Pulse 99 H 01/27/25 20:44 Resp 18 01/27/25 20:44 BP 141/88 H 01/27/25 20:44 Pulse Ox 98 01/27/25 20:44 Laboratory Results - last 24 hr 01/26/25 06:35 Ionized Calcium 1.18 PTH Intact 23 Time Spent with Patient Time Spent with Patient: 35-49 minutes Time was spent: preparing to see the patient(eg.review tests), ordering medications,tests, procedures, referring, communicating with other health pet care technician, indepentently interpreting results, counseling the patient and care coordination
--- NOTE | 2025-01-28 16:10 | PDOC.MHCN ---
Date of service: 01/28/25 Time of Service: 10:15 Suicide Severity Rate CSSRS Have you wished you were or wished you could go to sleep and not wake up?: No Have you actually had any thoughts of killing yourself?: No CSSRS3 Have you ever done anything, started to do anything or prepared to do anything to end your life?: No Screening Score Total Score: 0 Screening: Negative Mental Health Emergency Note Release [facility] release signed:: Yes Reason for Visit Altered status In the last 2 weeks has the pt presented for ES prior to today?: Unknown Client Information Client is: New Well Housed: Yes Non Suicidal Self Injury Current: No History: No Risk: Does risk to harm exist?: yes. Duty to warn indicated: No Asssessment/Mental Status Appearance: Disheveled Attitude: Other Behavior: Other Speech: Soft, Hesitant and Other Affect: Flat Mood: Sad and Other Thought process: Other Hallucinations: No evidence Delusions: No evidence Attention: Other Perception: Other Orientation: Disoriented in Time and Situation Memory: Impaired in: Recent Neurovegetative Symptoms Sleep: Decrease Appetitie: Decrease Interests: Decrease Energy: Decrease Libido: No change Impression Client presents with extreme latency in responses, unable to participate in actual assessments. Denies suicidal or homicidal ideation, reports safe at home, minimal engagement. Appears to be attempting to commumicate. Plan/Disposition Recommended Disposition: Hospitalization facilities contacted. Plan: Client has been referred to inpatient mental health treatment for evaluation. Reports/communication Outcome discussed with: Other
--- NOTE | 2025-01-28 17:04 | W.PM.PROGNOT ---
Date of Service Date of service: 01/28/25 Time of Service: 17:04 Subjective Subjective Patient reports: no new complaints Interval history since last seen: She continues to be withdrawn, poor eye contact, does not answer questions, and has not been eating or drinking adequately, only had less than an ounce of yogurt today. Objective Last Vital Signs Temp 36.6 C 01/27/25 20:44 Pulse 99 H 01/27/25 20:44 Resp 18 01/27/25 20:44 BP 141/88 H 01/27/25 20:44 Pulse Ox 98 01/27/25 20:44 Laboratory Results - last 24 hr 01/26/25 06:35 Ionized Calcium 1.18 PTH Intact 23 Syphilis Serology Negative
[2025-01-28 18:42] VITALS: BP 145/68; PULSE 120; RESP 15; TEMP 36.5; O2SAT 98
[2025-01-28] MEDS: Mirtazapine 15 MG TAB PO (20:15)
--- NOTE | 2025-01-28 20:46 | PSYCHFUP_ITS ---
Date of service: 01/28/25 Time of Service: 20:20 Summary Note PSYCHIATRY CONSULT NOTE: FOLLOW-UP EVALUATION Date/Time:?01/28/2025 8:40:06 PM Name:Shonda Bermudez :?1950 Location of the patient:?[facility] IP Consulting Array Clinician:?Tarah Miles Location of the clinician:?[place], [place] SUMMARY Patient is a 74-year-old female, who resides in single family home in [place] with family. She has a past psychiatric history significant for anxiety, depression, alcohol use disorder in full sustained remission 2018, no history of complicated withdrawal seizures, no prior inpatient psychiatric hospitalizations, no prior suicide attempts, and a history of chemical dependency treatment in 2019. She was admitted to medicine 01/25 for altered mental status referred to psychiatry for altered mental status, anxiety, depression and recommended inpatient psychiatric hospitalization. Psychiatry was consulted on 01/28/25 for reevaluation. Patient continues to be depressed and anxious including symptoms of sadness, hopelessness, some symptoms of anxiety, decline in activities of daily, and symptoms of anhedonia. She was reportedly considering on whether she wished to continue with the mirtazapine but did not articulate specific concerns about the mirtazapine. Patient continues to require inpatient psychiatric hospitalization. Patient has significant latency in her speech, has very still kinetics in the chair, poor oral intake. RISK ASSESSMENT Current Suicide Risk Elevated???moderate Current Violence Risk Elevated???No Issues with ability to care for self???undetermined Does patient require psychiatric hospitalization???Yes Working Diagnoses:? F33.2 Major depressive disorder, recurrent severe without psychotic features Rule Out Diagnoses:? CPT Codes:?28732 (OP/ED) / 90857 (IP) ? Moderate Complexity Follow-up PLAN Disposition:?Voluntary admission when medically stable. Patient understands recommendation for psychiatric admission and consents. Re-consult psychiatry/screening if patient requests discharge. ? Observation level ? Psychiatric 1:1 needed??Continue psych 1:1 OR Close observation per hospital protocol Work-up:? Pharmacological:? * Continue mirtazapine 15 mg at bedtime, patient unsure if she wishes to continue the medication, * Would recommend a trial of lorazepam 0.5 mg every six hours scheduled for possible symptoms of catatonia. * Is patient psychotic? - undetermined; * Informed consent: Discussed risks and benefits of the above recommended psychiatric medications with patient, who demonstrated understanding and gave express informed consent to take the above medications as documented. Follow up needed while in the hospital??24-48 hours follow up Other:? * If questions arise about the psychiatric care of this patient, please call the [facility]?to request a follow-up consult. ?Please do not contact me individually through the EMR chat as I am not?regularly logged on to?this system. The psychiatrist for the follow-up visit may be a different psychiatrist Discussed plan with onsite steam hammer operator:?Yes - This facility has a sign-out process that does not involve doc-to-doc communication, reviewed evaluation and recs with Deepti LUZ HISTORY This evaluation was conducted remotely with the assistance of onsite staff via HIPAA-compliant video call. Patient consented to proceed with the telehealth visit. Requested by:?Hospital medicine colleaguesMD Medical Record Reviewed/Appreciated:? Patient status since last psychiatric visit?:?in behavioral control with no reported issues Interval History:? Patient is a 74-year-old female, who resides in single family home in [place] with family. She has a past psychiatric history significant for anxiety, depression, alcohol use disorder in full sustained remission 2018, no history of complicated withdrawal seizures, no prior inpatient psychiatric ho spitalizations, no prior suicide attempts, and a history of chemical dependency treatment in 2019. She was admitted to medicine 01/25 for altered mental status referred to psychiatry for altered mental status, anxiety, depression and recommended inpatient psychiatric hospitalization. Psychiatry was consulted on 01/28/25 for reevaluation. On psychiatric interview, patient is alert and oriented to self, year, month, day of the week. Patient has significant latency in her responses to this provider. Patient reports that she continues to be anxious intermittently throughout the day. She reports that she is struggling with her mood including feelings of hopelessness, sadness, anhedonia, and increasing struggle with activities of daily living, Collateral Contacted No-- patient meets criteria for inpatient hospitalization. Family reported to nursing at baseline patient has latency in her speech but it has been more profound in the last couple of weeks. Current psychiatric and other clinically relevant medications:?mirtazapine 15 mg at bedtime MENTAL STATUS EXAM Appearance and Attire:?appropriate level of hygiene and self grooming, dressed in blue scrubs Psychomotor agitation:?still kinetics Attitude and behavior:?limited historian Speech:? Slow, Soft, Increased latency Mood:? Depressed, Anxious Affect:?blunted and restricted Thought Process:?no loosening of associations, concrete in thought processes Thought content:?no apparent delusions or paranoia Perception:?did not appear to be responding to internal stimuli Intelligence:? Average Abstraction:? [place] Language:? No abnormality Orientation:? Grossly oriented Sensorium:? Distractible Knowledge:? Appropriate for education and socioeconomic status Memory:? Intact Insight:?limited insight Judgment:?limited judgment Tarah Miles, DO
[2025-01-29] MEDS: POTASSIUM CHLORIDE/0.45% NACL 1,000 ML 100 MEQ IV (03:32)
[2025-01-29 06:26] LABS: Abs Immature Grans 0.02 10^3/uL (0.0-0.06); HCT 35.4 % (36.0-46.0); HGB 11.8 g/dL (11.2-15.7); Immature Grans % 0.3 %; MCH 31.8 pg (27.0-33.0); MCHC 33.3 % (32.0-36.0); MCV 95 fL (80-95); MPV 9.2 fL (8.0-11.0); Platelet Count 167 10^3/uL (130-400); RBC 3.71 10^6/uL (3.93-5.22); RDW 11.9 % (11.7-14.6); RDW-SD 41.6 fL; WBC 6.29 10^3/uL (4.4-10.8)
[2025-01-29 07:18] VITALS: BP 134/74; PULSE 130; RESP 17; TEMP 37.2; O2SAT 96
[2025-01-29 07:51] LABS: Anion Gap 9.8 mmol/L (3-11); BUN 13 mg/dL (7-18); CO2 26.2 mmol/L (21.0-32.0); Calcium 9.3 mg/dL (8.5-10.1); Chloride 103 mmol/L (98-107); Estimated GFR 99.59 (mL/min/1.73m2); Glucose 75 mg/dL (74-106); Magnesium 1.9 mg/dL (1.8-2.4); Potassium 4.5 mmol/L (3.5-5.1); Sodium 139 mmol/L (136-145)
[2025-01-29] MEDS: Pantoprazole 40 MG TABCR PO (08:17)
[2025-01-29] MEDS: Losartan 25 MG TAB PO (08:17)
[2025-01-29 08:18] VITALS: PULSE 89
--- NOTE | 2025-01-29 08:42 | W.PM.DS.N ---
Date of service: 01/29/25 Time of Service: 08:42 DS: Diagnosis Discharge Diagnosis (1) Suicidal ideation: Status: Acute (2) Change in mental status: Status: Acute (3) Acute dehydration: Status: Resolved (4) Hypercalcemia: Status: Resolved (5) DVT prophylaxis: Status: Acute Discharge Plan Disposition Patient Disposition: Psychiatric Hospital/Unit Specific Psychiatric Facility: Other Condition: Fair Discharge Details Reason For Visit: mental status change, catatonia Admit Date/Time: 01/25/25 20:39 Admit Provider: Miguelito Villar Attending Provider: Miguelito Villar Primary Care Provider: Festus Bradford [facility]y Hospital Course Hospital Course: Kerry Bermudez, a 74-year-old woman with a history of hypertension, anxiety, depressive disorder, and alcohol use disorder in remission, presented with acute alterations in mental status, poor oral intake, and failure to thrive after recently relocating from [place] to [place] to live with family. She was seen by PCP last week. She was noted to have withdrawn behavior, delayed speech, and depressive symptoms including hopelessness and anxiety, with a 20-pound unintentional weight loss. EMS and family reported several days of minimal intake and reduced responsiveness at home. Brother reports the last time she was like this in 1971 she was on acid. Unclear of mental status of brother. UDS negative (except for benzos; urine collected AFTER versed given in ED. On evaluation, she was alert and oriented but exhibited blunted affect, extremely latent speech, and severe impairment in insight and judgment. Labs showed mild hypercalcemia and acute dehydration, with otherwise unremarkable findings; CT head was without acute abnormality. Psychiatry consultation via telehealth identified major depressive disorder, recurrent severe without psychotic features, and significant anxiety. She endorsed suicidal thoughts without intent or plan, and was deemed gravely disabled by her psychiatric state. Initial management included hydration, laboratory monitoring, DVT prophylaxis, continuation of losartan for blood pressure, and initiation of mirtazapine 15 mg nightly for depression, anxiety, and appetite. Patient was reevaluated by psychiatry yesterday and it was recommended to trial Lorazepam 0.5 mg every 6 hours as needed. She was medically stabilized and deemed appropriate for inpatient psychiatric admission once medically ready. Family involvement and social support were assessed; patient expressed preference for limited interaction at times. Patient was accepted in transfer by [facility]. Home Meds and New Rx's Prescriptions: New mirtazapine 15 mg Tablet 15 mg PO HS Qty: 30 0RF acetaminophen 325 mg Tablet 650 mg PO Q4H PRN PRNQty: 30 0RF lorazepam 0.5 mg Tablet 0.5 mg PO Q6H PRNQty: 30 0RF Continued losartan 25 mg tablet 25 mg PO DAILY No Action diphenhydramine-acetaminophen [Tylenol PM Extra Strength] 25-500 mg tablet 2 tab PO QHS Discharge Instructions Activity:: Activity as Tolerated Equipment/Supplies:: No Equipment Needed Diet:: As Tolerated Discharge Orders Discharge Orders: Discharge Order (Routine); Ordered 01/29/25 Ordered By: Rubi Iqbal DS: Summary Time Spent with Patient providing and/or coordinating discharge services: Greater than 30 minutes Status at Discharge Functional status at discharge: independent ambulation Overall status at discharge: patient is not back to baseline Mental Status: other (catatonic) Speech and Movement: catatonic Mood: other (catatonic) Affect: blunted Exam Narrative Exam Narrative: General: Thin female, appears younger than stated age, no acute distress Head: Atraumatic Eyes: Nonicteric, noninjected Oral: Mucosa dry Neck: No JVD Cardiovascular: Regular rate and rhythm Respiratory: Even, unlabored respirations Abdomen: Soft, nontender Extremities: Moves all extremities, no peripheral edema Skin: Pale, warm, dry Neurologic: Awake, alert, not responding to questions or making eye contact at time of assessment. Psychiatric: Nonverbal, not responding to questions, no eye contact, affect blunted. Psych Mental Status: other (catatonic) Speech and Movement: catatonic Mood: other (catatonic) Affect: blunted DS: Data Vitals/I&O Vitals and I&O: Vital Signs Temperature 37.2 C 01/29/25 07:18 Temperature Source Tympanic 01/29/25 07:18 Pulse 89 01/29/25 08:18 Pulse 75 01/25/25 21:10 Respiratory Rate 17 01/29/25 07:18 Respiratory Effort Normal 01/25/25 21:47 Respiratory Depth Normal 01/25/25 21:47 Respiratory Pattern Normal 01/25/25 21:47 Blood Pressure 134/74 01/29/25 07:18 Blood Pressure Mean 94 01/29/25 07:18 Blood Pressure Position Sitting 01/25/25 18:51 Pulse Oximetry 96 01/29/25 07:18 Oxygen Delivery Method Room Air 01/29/25 07:18 Oxygen Flow Rate 0 01/29/25 07:18 Pain Level 0 01/29/25 08:41 Comment Pt's vitals are Q4 while awake, pt was sleeping, pt refused. SCRAPER TENDER will get vitals next time pt's is awake. 01/26/25 02:09 Intake & Output 01/28/25 01/28/25 01/29/25 11:59 23:59 11:59 Intake Total 943.333 / 9996.256 0988 / 7675.806 2034 / 1015 Output Total 300 / 300 Balance 643.333 / 2908.336 0333 / 2398.705 8064 / 1015 Intake: IV 943.333 / 8983.349 2439 / 2659.515 4751 / 1000 Oral 15 / 15 Output: Urine 300 / 300 Other: Urine Color Yellow Yellow Comment unknown amount pt did urinate in the bathroom on med/surge unknown amount pt used bathroom Data Completed and Pending Labs on day of discharge: Labs from last 24 hours 01/29/25 01/26/25 06:08 06:35 WBC 6.29 RBC 3.71 L Hgb 11.8 Hct 35.4 L MCV 95 MCH 31.8 MCHC 33.3 RDW 11.9 Plt Count 167 MPV 9.2 Immature Gran % 0.3 Neutrophils % 74.2 Lymphocytes % 18.1 Monocytes % 6.8 Eosinophils % 0.3 Basophils % 0.3 Nucleated RBC % 0.0 Absolute Neutrophils 4.66 Absolute Lymphocytes 1.14 L Absolute Monocytes 0.43 Absolute Eosinophils 0.02 Absolute Basophils 0.02 Sodium 139 Potassium 4.5 Chloride 103 Carbon Dioxide 26.2 Anion Gap 9.8 BUN 13 Creatinine 0.5 L Est GFR (CKD-EPI 2020) 99.59 Glucose 75 Calcium 9.3 Ionized Calcium 1.18 Magnesium 1.9 PTH Intact 23 Syphilis Serology Negative PFSH All Active Problems (Updated 01/28/25 @ 12:48 by Rubi Iqbal NP) Suicidal ideation (Acute) DVT prophylaxis (Acute) Adult failure to thrive (Acute) Change in mental status (Acute) Medical History (Updated 01/28/25 @ 12:48 by Rubi Iqbal NP) Alcohol use disorder in remission Endometriosis Breast cancer Underweight Hypertension Surgical History (Updated 01/25/25 @ 22:43 by Miguelito Villar) S/P mastectomy, bilateral S/P bilateral oophorectomy Family History (Updated 01/25/25 @ 22:43 by Miguelito Villar) Brother Diabetes Father Heart disease Social History (Updated 01/25/25 @ 22:46 by Miguelito Villar) Smoking/Tobacco Use Status: Never Smoking risk assessment performed?: Yes Alcohol Intake: former Year quit: 2019 Drug use: Never Substance use type: does not use Housing: house Do you feel safe at home: Yes Do you feel safe in your relationship?: Yes Additional Social history: Moved from [place], [place] to [facility] 01/11/2025 to live with Brother and Niece. 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
--- NOTE | 2025-01-29 09:31 | CMSP_ITS ---
Date of service: 01/29/25 Time of Service: 09:33 Care Management Safety Plan Status Status: Voluntary Reason for Wait Reason for Wait: Inpatient Admission Safety Plan Safety Plan: VOLUNTARY FOR INPATIENT PSYCHIATRIC STABILIZATION.? Patient is appropriate in all interactions since arriving at [facility]; Pt has demonstrated appropriate coping and communication skills, has articulated his or her needs and concerns and is fully engaged during staff interactions. Safety plan has been established with patient, and care team, to adhere to patient goals, identify restrictions based on behavioral status, address nutrition, and determine allowed personal belongings, tools for hygiene and personal care. Determine level of activity including ambulation, level of superv ision, visitors, and determine privileges based on behaviors and level of engagement by pt. VOLUNTARY SAFETY PLAN: 1. Will remain on suicide precautions, may wear personal clothes at RN discret ion 2. Will remain in med-surg room under direct supervision of one-on-one staff at all times provided by [employer]; MIKIE, EVAPORATIVE COOLER INSTALLER ball points inspector. 3. May have paper cups, plates, finger foods as well as a cardboard spoon with which to eat meals. 4. Follow [facility] Management of the Admitted Behavioral Health Patient policy. 5. Comfort bath system, shower permitted with escort at RN discretion. 6. Personal belongings- soft items, cell phone, permitted at RN discretion. 7. Visitors - Brother, Carlos, Moses lunsford[employer] may visit. 8. Activities: soft cart items, hospital tablets (Netflix/Helen+/music) approved per RN discretion. 9.? Bathroom available in room without restriction. 10. Phone: limited to [facility] cordless phone; patient has personal phone at RN discretion. Due to VOLUNTARY status, if patient wishes to leave [facility], staff will contact [facility] Crisis Screener ([phone]) and Stone Sandblaster ([phone]) as soon as possible. In the event of elopement, notify [place] [employer] ([phone]). Patient is currently voluntarily at [facility] and seeking inpatient admission when a bed becomes available. [facility] Frontline Mri Specialist will continue seeking placement. Please contact the Stone Sandblaster ([phone]) and [facility] Mri Specialist ([phone]) for any needed changes in the Safety Plan. Safety plan has been provided to interdepartmental care team.
--- NOTE | 2025-01-29 09:31 | PDOC.CMSAFE ---
Date of service: 01/29/25 Time of Service: 09:33 Care Management Safety Plan Status Status: Voluntary Reason for Wait Reason for Wait: Inpatient Admission Safety Plan Safety Plan: VOLUNTARY FOR INPATIENT PSYCHIATRIC STABILIZATION.? Patient is appropriate in all interactions since arriving at [facility]; Pt has demonstrated appropriate coping and communication skills, has articulated his or her needs and concerns and is fully engaged during staff interactions. Safety plan has been established with patient, and care team, to adhere to patient goals, identify restrictions based on behavioral status, address nutrition, and determine allowed personal belongings, tools for hygiene and personal care. Determine level of activity including ambulation, level of supervision, visitors, and determine privileges based on behaviors and level of engagement by pt. VOLUNTARY SAFETY PLAN: 1. Will remain on suicide precautions, may wear personal clothes at RN discretion 2. Will remain in med-surg room under direct supervision of one-on-one staff at all times provided by [employer]; MIKIE, COMPUTER SYSTEMS AUDITOR director of student financial services. 3. May have paper cups, plates, finger foods as well as a cardboard spoon with which to eat meals. 4. Follow [facility] Management of the Admitted Behavioral Health Patient policy. 5. Comfort bath system, shower permitted with escort at RN discretion. 6. Personal belongings- soft items, cell phone, permitted at RN discretion. 7. Visitors - Brother, Carlos, isatu, Simran may visit. 8. Activities: soft cart items, hospital tablets (Netflix/Helen+/music) approved per RN discretion. 9.? Bathroom available in room without restriction. 10. Phone: limited to [facility] cordless phone; patient has personal phone at RN discretion. Due to VOLUNTARY status, if patient wishes to leave [facility], staff will contact [facility] Crisis Screener ([phone]) and Control Board Operator ([phone]) as soon as possible. In the event of elopement, notify [place] [employer] ([phone]). Patient is currently voluntarily at [facility] and seeking inpatient admission when a bed becomes available. [facility] Frontline Drafting Layout Worker will continue seeking placement. Please contact the Control Board Operator ([phone]) and [facility] Drafting Layout Worker ([phone]) for any needed changes in the Safety Plan. Safety plan has been provided to interdepartmental care team.
--- NOTE | 2025-01-29 09:38 | PDOC.CMDIS ---
Date of service: 01/29/25 Time of Service: 09:38 LACE Index Scoring Tool Questions: Length of Stay (in days): 4 - 6 Was the patient admitted via the E.D.?: Yes E.D. Visits: 2 Answers: Total Score: 9 Risk of Readmission: Low Risk Care Management Discharge Plan Reason for Hospitalization: Mental status change, catatonia Discharge Plan: Kerry will transfer to [facility] today. She will transport via [facility] as an acute transfer. Clinton Khalil will bring in personal clothing for Kerry. Simran states she had previously brought in clothing and it was bagged and tagged; RN aware. It is recommended she follow up with her community providers and continue per her discharge plan of care. Patient/Family Education Needs: review of discharge instructions, activity, limitations, and plan of care. Discuss ask me three.
[2025-01-31 00:48] LABS: Thiamine (Vitamin B1), WB 232 nmol/L (70-180)
== END 2025-01-29 09:54 | DRG 885 ==
LOC: ER 20:52 → MS 21:23
PROVIDERS: Admitting Provider Family Medicine; Emergency Provider Emergency Medicine; PCP Family Medicine; Responsible Provider Nurse Practitioner Family; Visit Provider Family Medicine
DX: F33.2 Major depressive disorder, recurrent severe without psychotic features (principal); Z68.1 Body mass index [BMI] 19.9 or less, adult; R45.851 Suicidal ideations; E86.0 Dehydration; I10 Essential (primary) hypertension; R63.6 Underweight; E83.52 Hypercalcemia; F41.9 Anxiety disorder, unspecified; Z85.3 Personal history of malignant neoplasm of breast
CPT/HCPCS: 00123; 36415; 80048; 80053; 80307; 82306; 82550; 93005; 96127; 96361; 96365; 96372; 96375; 99285; J1650; 80320; 81003; 81015; 82330; 83036; 83540; 83550; 83735; 83970; 84100; 84425; 84443; 84484; 85025; 86592; 93010; 99222; 99232; 99233; 99239; G0378; J2250; J3411; J3490